=== PATIENT | male | born 1950 | race Caucasian/White ===

== ENCOUNTER 2018-01-29 15:19 | Inpatient (IN) ==
[2018-01-29] MEDS ORDERED: Naloxone 0.4 MG/ML INJ IVP PRN (18:44)
[2018-01-29] MEDS ORDERED: Acetaminophen 325 MG TABLET PO PRN (18:44)
[2018-01-29] MEDS ORDERED: *HR* Heparin 5,000 UNIT/ML VIAL IVP PRN (18:55)
--- NOTE | 2018-01-29 19:10 | Internal Med History&Physical ---
<RenatoDavid Medina - Last Filed: 01/29/18 20:02> Date of Encounter: 01/29/18 Time of Encounter: 18:00 Internal Medicine - H&P: HPI Chief complaint: CP Admitted From: Intrahospital Transfer Plans for Post Hospital Care: Home History of present illness: Mr. Greenfield is a 67 year old male w/PMH of prostate cancer resulting in prostatectomy, CAD, HTN, and CK D/polycystic kidneys, COPD, and angioplasty/ stent x1 in 2014 presents from [place] ED w/CC of CP that began today after eating [employer]. Pt. reports centralized chest pressure and pain w/radiation to left arm and teeth accompanied by nausea, vomiting, dizziness, SOB/dyspnea, and severe diaphoresis. States similar sx before in 2014 requiring heart cath, but not this bad. Reports no alleviating or aggravating factors. EKG at [place] showed evidence for subendocardial ischemia but no evidence for acute ST elevation for acute [place]. Strong familial hx of CAD (father: HD, from [place]; mother: from CVA). Pt. reports recent pneumonia diagnosis in early January with improvement of symptoms except for cough but denies fever, chills, changes in vision, unusual bleeding, headache, palpitations, abdominal pain, diarrhea, constipation, pre-syncope, or syncope. Past Med Surg Social Fam HX - Past Medical History Source: patient, old records reviewed, obtained from family Medical history: cancer (Prostate cancer w/prostatectomy), COPD (Emphysema), coronary artery disease, hypertension, renal disease (Polycystic kidneys) Psychiatric history: no psych history - Past Surgical History Surgical History: angioplasty/stent (x1), prostatectomy, other Additional surgical history: LUNG SURGERY X 1 - Social History Smoking Status: Former smoker Packs per day: 1 PPD - Reports quitting 15 years ago Smokeless Tobacco Status: Yes Alcohol use: none Drug use: none Current living situation: Home Activity Level: Independent ambulation Recent Out of Country Travel Within the Last 8 Weeks: No Exposure or Possible Exposure to Illness During Travel: No - Family History Father Race: Family Member Ethnicity: Non- Living Status: Age at : 62 Cause of : [place] Hx Family Cardiac Disorders: Yes (HD, [place]) Hx Family Cancer: Yes (Lung) Hx Family Psychosocial Disorders: Yes (EtOH abuse) Mother Race: Family Member Ethnicity: Non- Living Status: Age at : 83 Cause of : CVA Hx Family Cardiac Disorders: Yes (CVA) Hx Family Cancer: Yes (Lung) Hx Family Neurologic Disorders: Yes (CVA) Brother Race: Family Member Ethnicity: Non- Living Status: Age at : 50 Cause of : Melanoma Hx Family Cancer: Yes (Melanoma, Hodgkins) Sister Race: Family Member Ethnicity: Non- Living Status: Still Living Hx Family Cancer: Yes (Lung) Internal Medicine - H&P: Meds Carvedilol [Coreg] 6.25 mg PO BIDWM 01/29/18 [History] Cetirizine HCl [Zyrtec] 10 mg PO DAILY 01/29/18 [History] Fluticasone Propionate Nasal [Flonase] 50 mcg NS DAILY 01/29/18 [History] amLODIPine [Norvasc] 5 mg PO DAILY 01/29/18 [History] 3 Allergy/AdvReac Type Severity Reaction Status Date / Time No Known Allergies Allergy Verified 01/29/18 14:27 All Systems PM: A 10-system review of systems was performed and is negative for pertinent findings except as documented above in the HPI. - Constitutional Constitutional: no chills, no fever(s), no night sweats - EENT Eyes: no change in vision, no discharge, no pain, no photophobia Ears: no ear discharge, no ear pain, no tinnitus Nose, mouth and throat: no dysphagia, no nasal discharge, no neck pain, no sore throat - Breasts Breasts: as per HPI - Cardiovascular Cardiovascular ROS IM: as per HPI, chest pain, diaphoresis, dyspnea, dyspnea on exertion, lightheadedness, no palpitations, no syncope - Respiratory Respiratory: as per HPI, cough, dyspnea, dyspnea on exertion, no wheezing, no excessive phlegm production - Gastrointestinal Gastrointestinal: as per HPI, nausea, vomiting, no abdominal pain, no diarrhea, no hematemesis, no hematochezia, no melena - Genitourinary Genitourinary ROS male: as per HPI - Musculoskeletal Musculoskeletal ROS IM: no numbness, no tingling - Integumentary Integumentary IM: no rash, no unusual bruising - Neurological Neurological ROS: as per HPI, dizziness, numbness (Numbness and pain in left arm w/CP sx), no confusion, no convulsions, no focal weakness, no tingling, no tremor(s) - Psychiatric Psychiatric: as per HPI - Endocrine Endocrine IM: as per HPI - Hematologic/Lymphatic Hematologic/Lymphatic: no easy bruising - Allergic/Immunologic Allergic/Immunologic: as per HPI - Constitutional Vitals: Temp Pulse Resp BP Pulse Ox 98.0 F 85 16 162/94 95 01/29/18 16:54 01/29/18 16:54 01/29/18 16:54 01/29/18 16:54 01/29/18 16:54 General appearance: Present: cooperative, mild distress, A&O X 3, pleasant, obese, answers questions appropriately - Head Head exam: Present: atraumatic, normocephalic - Eye Eye exam: Present: PERRL, conjuntiva pink, sclera anicteric Pupils: Present: PERRL - ENT ENT exam: Present: normal exam - Neck Neck exam general surgery: Present: normal inspection, supple, trachea midline. Absent: lymphadenopathy - Respiratory Respiratory exam: Present: CTAB. Absent: accessory muscle use, rales, rhonchi, wheezes - Cardiovascular Cardiovascular exam: Present: RRR, +S1, +S2. Absent: diastolic murmur, gallop, rubs, systolic murmur - GI/Abdominal GI/Abdominal exam: Present: normal bowel sounds, soft, no peritoneal signs. Absent: distended, tenderness - Rectal Rectal exam: Present: deferred Additional comments: exam deferred. - Additional comments: exam deferred. - Extremities Exam Extremities exam: Present: warm, radial pulses palpable and symmetrical. Absent : calf tenderness, cyanotic, pedal edema - Back Exam Back exam: Present: normal inspection - Neurological Exam Neurological exam: Present: alert, CN II-XII intact, oriented X3, no focal deficits. Absent: pronater drift, facial droop, speech deficit - Psychiatric Psychiatric exam: Present: normal affect, normal mood - Skin Skin exam: Present: dry, intact Internal Med - H&P Results - Labs CBC & Chem 7: 01/29/18 19:13 01/29/18 19:13 - Assessment and plan (1) Chest pain Current Visit: Yes Status: Acute Assessment and plan: Acute CP today following eating at [email or web address]. Centralized CP w/radiation to left arm and teeth. EKG at [place] ED shows evidence for subendocardial ischemia but no evidence for acute ST elevation for acute [place]. Hx of heart catheterization in 2015 w/stent x1. Pt reports sx similar to 2015 but now worse. Initial troponin <0.03. Second 0.97. Will continue to trend. Repeat EKG. Continuous cardiac telemetry. Echocardiogram. Aspirin. 80 mg PO Lipitor ONCE. Lipid panel in a.m. labs. Cardiology consult ordered and discussed w/Dr. Devlin and I appreciate the consult and recommendations as always. Dr. Devlin' s recommendations include heparin and nitro drips. Pt. discussed w/Dr. Enrique who agrees w/plan of care. Pt. is high risk for cardiac event and further morbidity d/t current sx and CP, abnormal EKG, hx of similar sx and heart cath in 2015, strong familial hx of CAD/[place]/CVA, hx of tobacco use, and risk factors. Inpatient. Qualifiers: Chest pain type: precordial pain Qualified Code(s): R07.2 - Precordial pain (2) SOB (shortness of breath) Current Visit: Yes Status: Acute Assessment and plan: Acute SOB/dypsnea accompanying CP sx. Supplemental O2 w/titration and SpO2 monitoring. Hx of emphysema. DuoNebs Q6HR PRN. Falls/safety precautions, up with assist, bed rest w/bathroom privileges w/assist only. (3) Nausea and vomiting Current Visit: Yes Status: Acute Assessment and plan: Acute nausea and vomiting accompanying CP. IVP Zofran 4 mg Q6HR PRN. Qualifiers: Vomiting type: cyclical vomiting Vomiting Intractability: non-intractable Qualified Code(s): G43.A0 - Cyclical vomiting, not intractable (4) CAD (coronary artery disease) Current Visit: Yes Status: Chronic Assessment and plan: Hx of chronic CAD. Heart catheterization in 2014 w/stent x1. Continuous cardiac telemetry. Echocardiogram. Continue pts. Norvasc and Carvedilol. Lipid panel in a.m. labs. Lipitor 80 mg PO NOW. Qualifiers: Coronary Disease-Associated Artery/Lesion type: [place] artery [place] vs. transplanted heart: [place] heart Associated angina: angina presence unspecified Qualified Code(s): I25.10 - Atherosclerotic heart disease of [place] coronary artery without angina pectoris (5) Emphysema of lung Current Visit: Yes Status: Chronic Assessment and plan: Hx of chronic emphysema. Stable. Pt. reports hx of smoking 1 PPD but quitting 15 years ago. Supplemental O2 w/titration and SpO2 monitoring. DuoNebs Q6HR PRN. Qualifiers: Emphysema type: unspecified Qualified Code(s): J43.9 - Emphysema, unspecified (6) HTN (hypertension) Current Visit: Yes Status: Chronic Assessment and plan: Hx of chronic HTN. Monitor pt. and VS. Continue Carvedilol and Norvasc. Qualifiers: Hypertension type: essential hypertension Qualified Code(s): I10 - Essential (primary) hypertension (7) Renal failure (ARF), acute on chronic Current Visit: Yes Status: Chronic Assessment and plan: ARF. GFR currently 20 and creatinine 3.20 on admission. Hx of polycystic kidneys. Pts. daughter reports previous GFR was 30. Will use IV fluids judiciously if warranted and avoid nephrotoxins. Monitor I&O and f/u labs. Qualifiers: Acute renal failure type: unspecified Chronic kidney disease stage: unspecified stage Qualified Code(s): N17.9 - Acute kidney failure, unspecified ; N18.9 - Chronic kidney disease, unspecified (8) DVT prophylaxis Current Visit: Yes Status: Acute Assessment and plan: Patient placed on heparin drip per Cardiology d/t CP sx. Monitor pt. for signs of bleeding. - Time Spent With Patient Total time spent is greater than 50% in coordination of care (as documented) at patient's floor/unit and/or counseling patient: Greater than 35 minutes <Brittny Enrique - Last Filed: 01/29/18 21:58> Date of Encounter: 01/29/18 Internal Medicine - H&P: HPI Admitted From: Emergency Dept Plans for Post Hospital Care: Home History of present illness: Mr. Greenfield is a 67 year old male All Systems PM: A 10-system review of systems was performed and is negative for pertinent findings except as documented above in the HPI. - Constitutional Vitals: Temp Pulse Resp BP Pulse Ox 98 F 66 18 158/109 97 01/29/18 20:26 01/29/18 20:26 01/29/18 20:26 01/29/18 20:26 01/29/18 20:26 General appearance: Present: A&O X 3, no acute distress ( ) - Head Head exam: Present: atraumatic, normocephalic - Eye Eye exam: Present: PERRL, conjuntiva pink, sclera anicteric Pupils: Present: PERRL - Neck Neck exam general surgery: Present: supple, trachea midline. Absent: lymphadenopathy - Respiratory Respiratory exam: Present: CTAB. Absent: accessory muscle use, rales, rhonchi, wheezes - Cardiovascular Cardiovascular exam: Present: RRR, +S1, +S2. Absent: diastolic murmur, gallop, rubs, systolic murmur - GI/Abdominal GI/Abdominal exam: Present: normal bowel sounds, soft, no peritoneal signs. Absent: distended, tenderness - Extremities Exam Extremities exam: Present: warm, radial pulses palpable and symmetrical. Absent : calf tenderness, cyanotic, pedal edema - Neurological Exam Neurological exam: Present: CN II-XII intact, oriented X3, no focal deficits. Absent: pronater drift, facial droop, speech deficit - Skin Skin exam: Present: dry, intact Internal Med - H&P Results - Labs CBC & Chem 7: 01/29/18 19:13 01/29/18 19:13 Labs: Short CBC 01/29/18 Range/Units 19:13 WBC 6.1 (4.3-11.1) K/mcL Hgb 13.9 (12.9-16.9) g/dL Hct 41.9 (37.5-50.1) % Plt Count 202 (140-400) K/mcL Neutrophils # 4.3 (1.6-8.9) K/mcL BMP 01/29/18 19:13 Sodium 138 Potassium 4.6 Chloride 109 H Carbon Dioxide 24 BUN 31 H Creatinine 2.94 H Glucose 131 H Calcium 8.8 Cardiac Enzymes 01/29/18 Range/Units 19:13 Troponin I 0.97 H* (< 0.04) ng/mL Liver Function 01/29/18 Range/Units 19:13 Total Bilirubin 0.4 (0.3-1.0) mg/dL AST 20 (13-39) Units/L ALT 12 (7-52) Units/L Alkaline Phosphatase 45 (34-104) Units/L Albumin 3.8 (3.5-5.7) g/dL - Attending Attestation I performed a history and physical exam of the patient and discussed his management with the GRE TUTOR. I reviewed the GRE TUTOR's note and agree with the documented findings and plan of care. - Time Spent With Patient Total time spent is greater than 50% in coordination of care (as documented) at patient's floor/unit and/or counseling patient: 25 - 35 minutes
[2018-01-29] MEDS ORDERED: Ondansetron 4 MG/2 ML VIAL IVP PRN (19:39)
[2018-01-29] MEDS ORDERED: Ipratropium/Albuterol Neb 3 ML IH PRN (19:39)
[2018-01-29 19:42] LABS: Basophils % 0.5 %; Eosinophils # 0.1 K/mcL (0.0-0.6); Eosinophils % 1.3 %; Hematocrit 41.9 % (37.5-50.1); Hemoglobin 13.9 g/dL (12.9-16.9); Immature Granulocytes % 0.5 % (0-4); Lymphocytes # 1.1 K/mcL (0.6-4.6); Lymphocytes % 18.8 %; Mean Corpuscular HGB Conc 33.2 g/dL (31.6-35.5); Mean Corpuscular Hemoglobin 28.7 pg (28.0-33.3); Mean Corpuscular Volume 86.6 fL (83.0-100.0); Mean Platelet Volume 10.4 fL (9.4-12.4); Monocytes # 0.5 K/mcL (0.0-1.3); Monocytes % 7.8 %; Neutrophils # 4.3 K/mcL (1.6-8.9); Platelet Count 202 K/mcL (140-400); Red Blood Count 4.84 M/mcL (4.19-5.50); Red Cell Distribution Width 13.6 % (11.5-14.5); Segmented Neutrophils % 71.1 %
[2018-01-29 19:44] LABS: Albumin 3.8 g/dL (3.5-5.7); Albumin/Globulin Ratio 1.2 (1.1-2.2); Bilirubin,Total 0.4 mg/dL (0.3-1.0); Calcium 8.8 mg/dL (8.6-10.3); Globulin 3.1 g/dL (2.4-3.5); Potassium 4.6 mEq/L (3.5-5.1); Total Protein 6.9 g/dL (6.4-8.9)
[2018-01-29 19:50] LABS: Prothrombin Time 11.2 Seconds (9.4-12.1)
[2018-01-29] MEDS: Heparin 25,000 UNIT/500 ML D5W 25,000 UNIT/500 ML BAG IVC SCH (20:02)
[2018-01-29] MEDS: Aspirin Enteric Coated 81 MG Tablet PO SCH (20:05)
[2018-01-29] MEDS: Nitroglycerin 25 MG/250 ML INFUS..BTL IVC SCH (20:07)
[2018-01-30 02:01] LABS: Basophils % 0.5 %; Eosinophils # 0.2 K/mcL (0.0-0.6); Eosinophils % 2.7 %; Hematocrit 39.7 % (37.5-50.1); Hemoglobin 13.2 g/dL (12.9-16.9); Immature Granulocytes % 0.2 % (0-4); Lymphocytes # 1.7 K/mcL (0.6-4.6); Lymphocytes % 26.9 %; Mean Corpuscular HGB Conc 33.2 g/dL (31.6-35.5); Mean Corpuscular Hemoglobin 28.6 pg (28.0-33.3); Mean Corpuscular Volume 86.1 fL (83.0-100.0); Mean Platelet Volume 10.2 fL (9.4-12.4); Monocytes # 0.7 K/mcL (0.0-1.3); Neutrophils # 3.7 K/mcL (1.6-8.9); Platelet Count 187 K/mcL (140-400); Red Blood Count 4.61 M/mcL (4.19-5.50); Red Cell Distribution Width 13.8 % (11.5-14.5); Segmented Neutrophils % 58.7 %
[2018-01-30 02:21] LABS: Albumin 3.4 g/dL (3.5-5.7); Albumin/Globulin Ratio 1.2 (1.1-2.2); Bilirubin,Total 0.3 mg/dL (0.3-1.0); Calcium 8.5 mg/dL (8.6-10.3); Chol/HDL Ratio 3.9 (0-4.9); Globulin 2.8 g/dL (2.4-3.5); Magnesium 2.2 mg/dL (1.6-2.6); Potassium 4.1 mEq/L (3.5-5.1); Total Protein 6.2 g/dL (6.4-8.9)
[2018-01-30] MEDS: *HR* Heparin 5,000 UNIT/ML VIAL IVP PRN (02:27)
[2018-01-30] MEDS: Aspirin Enteric Coated 81 MG Tablet PO SCH (08:39)
--- NOTE | 2018-01-30 09:58 | Cardiology Consult Note ---
Date of Encounter: 01/30/18 Time of Encounter: 08:00 Assessment and Plan (1) NSTEMI (non-ST elevated myocardial infarction) Current Visit: Yes Status: Acute Typical chest pain symptoms, ischemic ECG changes. Troponin 0.97, 5.32. Continue to cycle until peak. Known hx of CAD s/p PCI with preserved LVEF in 2014. Continue heparin gtt, nitro gtt, and asa. Will start statin and BB. Will give Plavix 300 mg now, and then 75 mg daily. Ideally recommend LHC with possible PCI; however presented in [place] on CKD with SCr 3.20. Currently chest pain free, will start IV fluid and consult Nephrology. Plan for LHC in AM if able. Cardiac rehab consult. Risk factor reduction discussed. Check echocardiogram. Will continue to follow. (2) Renal insufficiency Current Visit: Yes Status: Acute SUZIE on CKD. Reported history of polycystic kidney disease. Baseline SCr appears to be 1.8-2.0; SCr 3.20 upon admission, now 2.94. Will start gentle IV hydration. Avoid nephrotoxins . Consulted Nephrology (Dr. Whitten, [facility]) for recommendations prior to LHC, if able. (3) CAD (coronary artery disease) Current Visit: Yes Status: Chronic plan as above. Asa, statin, BB, nitrates and plavix. Qualifiers: Coronary Disease-Associated Artery/Lesion type: [place] artery [place] vs. transplanted heart: [place] heart Associated angina: with unstable angina Qualified Code(s): I25.110 - Atherosclerotic heart disease of [place] coronary artery with unstable angina pectoris Discussion w patient/family: The assessment and plan as outlined above was discussed with the patient and/or family members who expressed understanding and agreement. All questions were answered. Thank you for involving us in the care of your patient. Please call with any questions. The patient will be discussed and reviewed with Dr. Devlin; changes to be made accordingly. History of Present Illness Consult date: 01/30/18 Requesting physician: David Gross Consult reason: NSTEMI Chief complaint: Chest pain History of present illness: Mr. Greenfield is a 67 year old male with PMHx significant of prostate CA s/p prostatectomy, CAD s/p prior PCI, HTN, nicotine use, & CKD d/t polycystic kidney disease who presented to [place] ED with complaints of chest discomfort that started ~1 hour prior to arrival. He notes pain developed after eating at [email or web address]. Chest discomfort described as tightness and pressure with radiation to left arm, reports similar symptoms in the past however much more severe. Reports pain lasted nearly an hour; improved with medications given in the ED including asa x4 and NTG tabs. Initial troponin 0.97, ischemic ECG changes noted , he was then transferred to [facility] for further care. SCr 3.20 upon arrival, 2.94 today. Reports hx of CKD; Nephrology reportedly left town and few years ago and never re-established. Prior CV testing: TTE 08/2014: EF 60-65% mild-moderate cLVH, mild LVDD, normal wall motion, no significant valvular dysfunction [facility] 08/2014: s/p successful PTCA/BIENVENIDO to pOM; otherwise 20% LAD, 30% mRCA and 99% pRCA (described as small, non-dominant vessel). Past Med Surg Social Fam HX - Past Medical History Source: patient Medical history: cancer (Prostate cancer w/prostatectomy), COPD (Emphysema), coronary artery disease, hypertension, renal disease (Polycystic kidneys) Psychiatric history: no psych history - Past Surgical History Surgical History: angioplasty/stent (x1), prostatectomy, other Additional surgical history: LUNG SURGERY X 1 - Social History Smoking Status: Former smoker Packs per day: 1 PPD - Reports quitting 15 years ago Smokeless Tobacco Status: Yes Alcohol use: none Drug use: none - Family History Father Race: Family Member Ethnicity: Non- Living Status: Age at : 62 Cause of : [place] Hx Family Cardiac Disorders: Yes (HD, [place]) Hx Family Cancer: Yes (Lung) Hx Family Psychosocial Disorders: Yes (EtOH abuse) Mother Race: Family Member Ethnicity: Non- Living Status: Age at : 83 Cause of : CVA Hx Family Cardiac Disorders: Yes (CVA) Hx Family Cancer: Yes (Lung) Hx Family Neurologic Disorders: Yes (CVA) Brother Race: Family Member Ethnicity: Non- Living Status: Age at : 50 Cause of : Melanoma Hx Family Cancer: Yes (Melanoma, Hodgkins) Sister Race: Family Member Ethnicity: Non- Living Status: Still Living Hx Family Cancer: Yes (Lung) Medications and Allergies Carvedilol [Coreg] 6.25 mg PO BIDWM 01/29/18 [History] Cetirizine HCl [Zyrtec] 10 mg PO DAILY 01/29/18 [History] Fluticasone Propionate Nasal [Flonase] 50 mcg NS DAILY 01/29/18 [History] amLODIPine [Norvasc] 5 mg PO DAILY 01/29/18 [History] 3 Allergy/AdvReac Type Severity Reaction Status Date / Time No Known Allergies Allergy Verified 01/29/18 14:27 All Systems Review: The remainder of the systems were reviewed and are negative - Cardiovascular Cardiovascular: as per HPI Physical Examination Vital Signs, Last 4 Hours Temp Pulse Resp BP Pulse Ox 01/30/18 08:48 64 153/87 97 01/30/18 07:08 98.2 F 56 16 139/120 93 01/30/18 07:05 65 163/99 94 01/30/18 06:00 63 163/103 General: Conversant, No Apparent Distress HEENT: Atraumatic, Normocephaly Cardiac: Reg Rate and Rhythm, Normal S1 and S2 Lungs: Normal Breath Sounds Neuro: Alert and responsive Abdomen: Soft Skin: No rashes noted on visualized skin Musculoskeletal: No Chest Wall Tenderness Extremities: No Edema, Normal Pulses Results 01/30/18 01:40 01/30/18 01:40 Lab Results 01/29/18 01/29/18 01/29/18 19:13 19:13 19:13 WBC 6.1 Hgb 13.9 Hct 41.9 Plt Count 202 INR 1.0 APTT 34.0 Sodium 138 Potassium 4.6 Chloride 109 H Carbon Dioxide 24 BUN 31 H Creatinine 2.94 H Glucose 131 H Calcium 8.8 Magnesium Total Bilirubin 0.4 AST 20 ALT 12 Alkaline Phosphatase 45 Troponin I 01/29/18 01/30/18 01/30/18 19:13 01:40 01:40 WBC 6.3 Hgb 13.2 Hct 39.7 Plt Count 187 INR APTT Sodium Potassium Chloride Carbon Dioxide BUN Creatinine Glucose Calcium Magnesium Total Bilirubin AST ALT Alkaline Phosphatase Troponin I 0.97 H* 5.32 H* 01/30/18 01/30/18 01/30/18 01:40 01:40 08:31 WBC Hgb Hct Plt Count INR APTT 53.0 H D 97.6 H D Sodium 138 Potassium 4.1 Chloride 109 H Carbon Dioxide 22 L BUN 29 H Creatinine 2.94 H Glucose 126 H Calcium 8.5 L Magnesium 2.2 Total Bilirubin 0.3 AST 35 ALT 13 Alkaline Phosphatase 40 Troponin I Active Medications Acetaminophen (Tylenol) 650 mg PO Q6HR PRN PRN Reason: Mild Pain/Fever Stop: 07/31/18 18:45 Albuterol/Ipratropium (Duoneb) 3 ml IH [id number] PRN PRN Reason: Shortness Of Breath/Wheezing Stop: 07/31/18 19:40 Aspirin (Aspirin Ec) 81 mg PO DAILY KLARISSA Stop: 07/31/18 19:01 Last Admin: 01/30/18 08:39 Dose: 81 mg Atorvastatin Calcium (Lipitor) 40 mg PO HS KLARISSA Stop: 08/01/18 21:01 Clopidogrel Bisulfate (Plavix) 75 mg PO DAILY KLARISSA Stop: 08/02/18 09:01 Guaifenesin (Mucinex) 600 mg PO BID PRN PRN Reason: Cough Stop: 07/31/18 19:11 Heparin Sodium (Porcine) (Heparin) 4,000 unit IVP Q6HR PRN PRN Reason: SEE COMMENTS Stop: 07/31/18 18:56 Heparin Sodium (Porcine) (Heparin) 2,000 unit IVP Q6H PRN PRN Reason: SEE COMMENTS Stop: 07/31/18 18:56 Last Admin: 01/30/18 02:27 Dose: 2,000 unit Heparin Sodium/Dextrose (Heparin 25,000 Unit/500 Ml D5w) 25,000 unit in 500 mls @ 19.799 mls/hr IVC .Q24H KLARISSA; 9.7 UNIT/KG/HR PRN Reason: Protocol Stop: 07/31/18 19:01 Last Titration: 01/30/18 09:17 Dose: 9.74 unit/kg/hr, 19.9 mls/hr Nitroglycerin (Nitroglycerin Premix 25 Mg/250 Ml) 25 mg in 250 mls @ 3 mls/hr IVC .Q24H KLARISSA; 5 MCG/MIN PRN Reason: Protocol Stop: 07/31/18 19:01 Last Admin: 01/29/18 20:07 Dose: 5 mcg/min, 3 mls/hr Metoprolol Tartrate (Lopressor) 12.5 mg PO BID KLARISSA Stop: 08/01/18 21:01 Naloxone HCl (Narcan) 0.4 mg IVP Q2MIN PRN PRN Reason: SEE COMMENTS Stop: 07/31/18 18:45 Nicotine Polacrilex (Nicorette Gum) 2 mg BC Q2HWA PRN PRN Reason: Nicotine Cravings Stop: 07/31/18 19:17 Ondansetron HCl (Zofran) 4 mg IVP Q6HR PRN; Protocol PRN Reason: Nausea And Vomiting Stop: 07/31/18 19:40 - Imaging and Cardiology Echo: report reviewed Cardiac cath: report reviewed Other Results: 12 hour tele: avg HR=62 SR; no events noted. - EKG Interpretation EKG results cardiology: personally reviewed Consult Discharge Plan - Plan Referrals: Razia Huynh, TELECOMMUNICATIONS TECHNICIAN [Primary Care Provider] - NONE,PCP [Family Provider] -
[2018-01-30] MEDS ORDERED: 0.9 % Sodium Chloride 1,000 ML IVC SCH (10:15)
--- NOTE | 2018-01-30 11:33 | Nephrology Consult Note ---
Date of Encounter: 01/30/18 Time of Encounter: 11:33 Assessment and Plan (1) Acute kidney injury superimposed on chronic kidney disease Current Visit: Yes Status: Acute Patient with SUZIE on CKD Stage 3 that is likely secondary to cardiac dysfunction and possibly dehydration. His renal function is improved slightly. Will order renal ultrasound and basic SUZIE work-up. Continue MIV. Will start Mucomyst for protection from anticipated iodonated contrast from cardiac cath for his NSTEMI. I explained that he may need dialysis if his renal function declines from contrast. Adjust medications for renal function and avoid nephrotoxins as possible. (2) CKD (chronic kidney disease), stage III Current Visit: Yes Status: Acute CKD Stage 3 since at least 2014. (3) NSTEMI (non-ST elevated myocardial infarction) Current Visit: Yes Status: Acute Per cardiology. History of Present Illness - Reason for Consult Consult date: 01/30/18 Acute Kidney Injury, Chronic Kidney Disease - Chief Complaint CKD - History of Present Illness Mr. Greenfield is a 67 yo man with a history of polycystic kidney disease who presents to [facility] for the evaluation of chest discomfort and was found to have a NSTEMI. He has a history of CKD Stage [address] Valdez, but he reports he has not been seen in over 3 years and wishes to establish with another retrofit installer. At the time of my evaluation he denies chest pain or shortness of breath. He denies rashes, joint pains, nausea or other complaints. He denies NSAID use. He states he was told he has polycystic kidneys. Past Med Surg Social Fam HX - Past Medical History Medical history: cancer (Prostate cancer w/prostatectomy), COPD (Emphysema), coronary artery disease, hypertension, renal disease (Polycystic kidneys) Psychiatric history: no psych history - Past Surgical History Surgical History: angioplasty/stent (x1), prostatectomy, other Additional surgical history: LUNG SURGERY X 1 - Social History Smoking Status: Former smoker Packs per day: 1 PPD - Reports quitting 15 years ago Smokeless Tobacco Status: Yes Alcohol use: none Drug use: none - Family History Father Race: Family Member Ethnicity: Non- Living Status: Age at : 62 Cause of : MS Hx Family Cardiac Disorders: Yes (HD, MS) Hx Family Cancer: Yes (Lung) Hx Family Psychosocial Disorders: Yes (EtOH abuse) Mother Race: Family Member Ethnicity: Non- Living Status: Age at : 83 Cause of : CVA Hx Family Cardiac Disorders: Yes (CVA) Hx Family Cancer: Yes (Lung) Hx Family Neurologic Disorders: Yes (CVA) Brother Race: Family Member Ethnicity: Non- Living Status: Age at : 50 Cause of : Melanoma Hx Family Cancer: Yes (Melanoma, Hodgkins) Sister Race: Family Member Ethnicity: Non- Living Status: Still Living Hx Family Cancer: Yes (Lung) Medications and Allergies Carvedilol [Coreg] 6.25 mg PO BIDWM 01/29/18 [History] Cetirizine HCl [Zyrtec] 10 mg PO DAILY 01/29/18 [History] Fluticasone Propionate Nasal [Flonase] 50 mcg NS DAILY 01/29/18 [History] amLODIPine [Norvasc] 5 mg PO DAILY 01/29/18 [History] 3 Allergy/AdvReac Type Severity Reaction Status Date / Time No Known Allergies Allergy Verified 01/30/18 10:56 Review of Systems All Systems: reviewed and no additional remarkable complaints except as stated ( as documented in the HPI.) Exam - Vital Signs Vital signs: Initial Vital Signs Pulse BP 53 137/77 01/29/18 00:00 01/29/18 00:00 Vital Signs - Last 8 Hours Temp Pulse Resp BP Pulse Ox 01/30/18 08:48 64 153/87 97 01/30/18 07:08 98.2 F 56 16 139/120 93 01/30/18 07:05 65 163/99 94 01/30/18 06:00 63 163/103 01/30/18 04:01 98.2 F 63 16 146/82 92 Intake and Output 01/29/18 01/30/18 01/30/18 23:59 07:59 15:59 Intake Total 128 / 128 352 / 352 Output Total 1225 / 1225 Balance -1097 / -1097 352 / 352 Intake: IV Fluids 128 / 128 352 / 352 Heparin 25,000 UNIT/500 ML D5W 128 / 128 352 / 352 25,000 unit In 500 ml @ 9.7 UNIT/KG/HR 19.799 mls/hr IVC . Q24H [facility] Rx#:[id number] Output: Urine 1225 / 1225 Other: Weight 102.058 kg 102.7 kg Patient Weight 01/30/18 23:59 Weight 102.7 kg - General Appearance General appearance: well-developed, well-nourished, obese EENT: ATNC Neck: supple Respiratory: clear Cardiology: no edema, regular rate, regular rhythm Gastrointestinal: normoactive bowel sounds, no tenderness, obese Integumentary: warm and dry Neurologic: alert and oriented x3 Musculoskeletal: no cyanosis Psychiatric: mood/affect appropriate Results - Lab Results 01/30/18 01:40 01/30/18 01:40 Most recent lab results Calcium 8.5 mg/dL (8.6-10.3) L 01/30/18 01:40 Magnesium 2.2 mg/dL (1.6-2.6) 01/30/18 01:40 Consult Discharge Plan - Plan Referrals: Razia Huynh, RENATA [Primary Care Provider] - NONE,PCP [Family Provider] -
[2018-01-30] MEDS: *HR* Acetylcysteine 20% 600 MG/3 ML ORAL SYRINGE PO SCH ×2 (13:22→21:22)
[2018-01-30 13:25] LABS: Bilirubin,Urine Negative (Negative); Blood,Urine Small (Negative); Clarity,Urine Clear (Clear); Color,Urine Yellow (Yellow); Glucose,Urine (UA) 100 mg/dL (Normal); Ketones,Urine Negative (Negative); Leukocyte Esterase,Urine Negative (Negative); Nitrite,Urine Negative (Negative); Protein,Urine 100 mg/dL (Neg-Trace); Specific Gravity,Urine 1.012 (1.010-1.025); Urobilinogen,Urine Normal (Normal)
[2018-01-30 13:27] LABS: Bacteria,Urine None Seen per hpf (None-Few); Hyaline Casts,Urine None Seen per lpf (None-Few); Squamous Epithelial Cell,Urine None Seen per lpf (None-Few); WBC,Urine 0-3 per hpf (0-3)
--- NOTE | 2018-01-30 13:59 | Internal Med Progress Note ---
Date of Encounter: 01/30/18 Time of Encounter: 13:54 - Assessment and plan (1) Chest pain Current Visit: Yes Status: Inactive Assessment and plan: No chest pain at this time. History of CAD status post stent 1 in 2014. Trending up troponin level but also has elevated creatinine level. Therefore consulted barrel drum cutter who ordered a renal ultrasound and a started Mucomyst and discussed with patient for possible hemodialysis if kidney function get worse after the heart catheter procedure. Plan for heart catheter tomorrow as patient is chest pain-free right now but consider heart catheter today if chest pain recur. Continue medical management now. Echocardiogram revealed with preserved LV function. Qualifiers: Chest pain type: precordial pain Qualified Code(s): R07.2 - Precordial pain (2) HTN (hypertension) Current Visit: Yes Status: Inactive Assessment and plan: Hx of chronic HTN. Monitor pt. and VS. Continue Carvedilol and Norvasc. Qualifiers: Hypertension type: essential hypertension Qualified Code(s): I10 - Essential (primary) hypertension (3) Renal failure (ARF), acute on chronic Current Visit: Yes Status: Inactive Assessment and plan: Table Maker on board. Monitor BMP. ARF. GFR currently 20 and creatinine 3.20 on admission. Hx of polycystic kidneys. Pts. daughter reports previous GFR was 30. Will use IV fluids judiciously if warranted and avoid nephrotoxins. Monitor I&O and f/u labs. Qualifiers: Acute renal failure type: unspecified Chronic kidney disease stage: unspecified stage Qualified Code(s): N17.9 - Acute kidney failure, unspecified ; N18.9 - Chronic kidney disease, unspecified (4) CAD (coronary artery disease) Current Visit: Yes Status: Chronic Assessment and plan: Hx of chronic CAD. Heart catheterization in 2014 w/stent x1. Continuous cardiac telemetry. Lipid panel in a.m. labs. Lipitor 80 mg PO NOW. Qualifiers: Coronary Disease-Associated Artery/Lesion type: [place] artery [place] vs. transplanted heart: [place] heart Associated angina: with unstable angina Qualified Code(s): I25.110 - Atherosclerotic heart disease of [place] coronary artery with unstable angina pectoris (5) Emphysema of lung Current Visit: Yes Status: Chronic Assessment and plan: Hx of chronic emphysema. Stable. Pt. reports hx of smoking 1 PPD but quitting 15 years ago. Supplemental O2 w/titration and SpO2 monitoring. Mildredbs Q6HR PRN. Qualifiers: Emphysema type: unspecified Qualified Code(s): J43.9 - Emphysema, unspecified (6) Nausea and vomiting Current Visit: Yes Status: Acute Assessment and plan: Better. continue IVP Zofran 4 mg Q6HR PRN. Qualifiers: Vomiting type: cyclical vomiting Vomiting Intractability: non-intractable Qualified Code(s): G43.A0 - Cyclical vomiting, not intractable (7) SOB (shortness of breath) Current Visit: Yes Status: Acute Assessment and plan: better Acute SOB/dypsnea accompanying CP sx. Supplemental O2 w/titration and SpO2 monitoring. Hx of emphysema. DuoNebs Q6HR PRN. (8) DVT prophylaxis Current Visit: Yes Status: Acute Assessment and plan: Patient placed on heparin drip per Cardiology d/t CP sx. Monitor pt. for signs of bleeding. - Time Spent With Patient Total time spent is greater than 50% in coordination of care (as documented) at patient's floor/unit and/or counseling patient: 25 - 35 minutes - Subjective Interval history: no active chest pain now.family at bed side. - Constitutional Vitals: Temp Pulse Resp BP Pulse Ox 98.7 F 67 18 172/91 94 01/30/18 11:33 01/30/18 13:43 01/30/18 11:33 01/30/18 13:43 01/30/18 13:00 General appearance: Present: A&O X 3, no acute distress ( ) Exam: General appearance: No acute distress, A&O X 3 Head exam: Atraumatic Eye exam: EOMI, PERRLA ENT exam: Moist oral mucosa Neck nontender, supple Respiratory exam: Clear to auscultation bilaterally Cardiovascular exam: Regular rate and rhythm, no systolic murmur Abdominal exam: Soft, nontender, nondistended, positive bowel sounds Extremities exam: No calf tenderness, no pedal edema Present: Skin-no rash, warm, dry, intact Neurological exam: Alert, awake, oriented 3, CN II-XII intact, no focal deficits. No facial droop. Normal speech. Normal gait. Internal Medicine: Result - Labs CBC & Chem 7: 01/30/18 01:40 01/30/18 01:40 Labs: Short CBC 01/29/18 01/30/18 Range/Units 19:13 01:40 WBC 6.1 6.3 (4.3-11.1) K/mcL Hgb 13.9 13.2 (12.9-16.9) g/dL Hct 41.9 39.7 (37.5-50.1) % Plt Count 202 187 (140-400) K/mcL Neutrophils # 4.3 3.7 (1.6-8.9) K/mcL BMP 01/29/18 01/30/18 19:13 01:40 Sodium 138 138 Potassium 4.6 4.1 Chloride 109 H 109 H Carbon Dioxide 24 22 L BUN 31 H 29 H Creatinine 2.94 H 2.94 H Glucose 131 H 126 H Calcium 8.8 8.5 L Cardiac Enzymes 01/29/18 01/30/18 01/30/18 Range/Units 19:13 01:40 09:44 Troponin I 0.97 H* 5.32 H* 8.52 H* (< 0.04) ng/mL Liver Function 01/29/18 01/30/18 Range/Units 19:13 01:40 Total Bilirubin 0.4 0.3 (0.3-1.0) mg/dL AST 20 35 (13-39) Units/L ALT 12 13 (7-52) Units/L Alkaline Phosphatase 45 40 (34-104) Units/L Albumin 3.8 3.4 L (3.5-5.7) g/dL Urine 01/30/18 Range/Units 12:50 Urine Color Yellow (Yellow) Urine Clarity Clear (Clear) Urine pH 7.0 (5.0-8.0) pH Units Ur Specific Mcclure 1.012 (1.010-1.025) Urine Protein 100 H (Neg-Trace) mg/dL Urine Glucose (UA) 100 H (Normal) mg/dL - ABG Interpretation ABG results: PT/INR, D-dimer PT 11.2 Seconds (9.4-12.1) 01/29/18 19:13 - Impressions Impressions Echocardiogram 01/30/18 19:01 Impressions: LVEF 60%. Normal LV chamber size and function. Moderate concentric left ventricular hypertrophy. Moderate left ventricular diastolic dysfunction. Normal right ventricular structure and function. Unable to estimate RVSP due to lack of TR jet. No evidence of pulmonary hypertension. No significant valvular dysfunction. Left Ventricular Wall Motion: Rest Echo Findings All wall segments showed normal motion. Findings: Study Quality * Technically adequate exam. ECG Findings * Normal sinus rhythm. Left Ventricle * LVEF 60%. * Normal LV chamber size and function. * Moderate concentric left ventricular hypertrophy. * Moderate left ventricular diastolic dysfunction. Right Ventricle * Normal right ventricular structure and function. Left Atrium * Mildly dilated left atrium. Right Atrium * Mildly dilated right atrium. Aortic Valve * Trileaflet aortic valve. * Mildly sclerotic aortic valve leaflets. * Trace aortic regurgitation. * No aortic stenosis. Mitral Valve * Normal mitral valve structure and function. * No mitral stenosis. * Trace mitral regurgitation. Tricuspid Valve * Normal tricuspid valve structure and function. * No tricuspid regurgitation. * Unable to estimate RVSP due to lack of TR jet. Pulmonic Valve * Normal pulmonic valve structure and function. * Trace pulmonic regurgitation. Aorta * Normally sized aortic root. Pericardium * The pericardium appears normal. IVC * Normal IVC dimensions and inspiratory collapse. Pulmonary Artery * Normal visualized portions of the main pulmonary artery. Consult Discharge Plan - Plan Referrals: Razia Huynh, RENATA [Primary Care Provider] - NONE,PCP [Family Provider] -
[2018-01-30 15:19] LABS: Protein/Creatinine Ratio,Urine 1.53 mg/mg (0.00-0.20); Sodium, Urine 85.5 mEq/L
[2018-01-30] MEDS: Heparin 25,000 UNIT/500 ML D5W 25,000 UNIT/500 ML BAG IVC SCH (17:41)
[2018-01-30] MEDS: amLODIPine 5 MG TABLET PO SCH (22:34)
[2018-01-31 00:38] LABS: Basophils % 0.5 %; Eosinophils # 0.3 K/mcL (0.0-0.6); Eosinophils % 4.5 %; Hemoglobin 12.5 g/dL (12.9-16.9); Immature Granulocytes % 0.5 % (0-4); Immature Platelets 2.5 % (1.1-6.1); Lymphocytes # 1.4 K/mcL (0.6-4.6); Mean Corpuscular HGB Conc 32.9 g/dL (31.6-35.5); Mean Corpuscular Hemoglobin 28.6 pg (28.0-33.3); Mean Platelet Volume 10.2 fL (9.4-12.4); Monocytes # 0.8 K/mcL (0.0-1.3); Monocytes % 10.9 %; Neutrophils # 4.7 K/mcL (1.6-8.9); Platelet Count 186 K/mcL (140-400); Red Blood Count 4.37 M/mcL (4.19-5.50); Red Cell Distribution Width 13.8 % (11.5-14.5); Segmented Neutrophils % 64.6 %
[2018-01-31 00:48] LABS: Albumin 3.4 g/dL (3.5-5.7); Albumin/Globulin Ratio 1.3 (1.1-2.2); Bilirubin,Total 0.5 mg/dL (0.3-1.0); Calcium 8.4 mg/dL (8.6-10.3); Globulin 2.7 g/dL (2.4-3.5); Potassium 4.4 mEq/L (3.5-5.1); Total Protein 6.1 g/dL (6.4-8.9)
[2018-01-31] MEDS: Nitroglycerin 25 MG/250 ML INFUS..BTL IVC SCH (01:44)
[2018-01-31] MEDS: *HR* Heparin 5,000 UNIT/ML VIAL IVP PRN (01:44)
[2018-01-31] MEDS: Aspirin Enteric Coated 81 MG Tablet PO SCH (09:17)
[2018-01-31] MEDS: amLODIPine 5 MG TABLET PO SCH (09:18)
--- NOTE | 2018-01-31 10:21 | Nephrology Progress Note ---
Date of Encounter: 01/31/18 Time of Encounter: 10:19 - Assessment and Plan (1) Acute kidney injury superimposed on chronic kidney disease Current Visit: Yes Status: Acute Awaiting renal ultrasound. Urine NA, protein, microalbumin noted. UOP 930 today, 1620 yesterday. No signs of fluid overload/uremia. Will continue to attempt to preserve kidney function for heart cath. Encouraged to force fluids by mouth after heart cath. 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 Okay for heart cath from renal standpoint. (2) NSTEMI (non-ST elevated myocardial infarction) Current Visit: Yes Status: Acute Per Cardiology. (3) Nausea and vomiting Current Visit: Yes Status: Acute Resolved, per primary team. Qualifiers: Vomiting type: cyclical vomiting Vomiting Intractability: non-intractable Qualified Code(s): G43.A0 - Cyclical vomiting, not intractable Subjective Principal diagnosis: chest pain Interval history: Pt seen and examined, doing well. No c/o of chest pain, nausea, vomiting or diarrhea. Objective - Vital Signs Vital signs: Vital Signs Temp Pulse Resp BP Pulse Ox 01/31/18 08:15 99.3 F 72 16 145/90 93 01/31/18 07:03 99.3 F 70 16 150/92 93 01/31/18 06:00 146/87 01/31/18 05:00 147/88 01/31/18 04:00 147/96 01/31/18 03:35 68 16 135/85 90 01/31/18 03:00 147/87 01/31/18 02:00 138/89 01/31/18 01:00 140/89 01/31/18 00:00 162/93 01/30/18 23:30 152/97 01/30/18 23:00 164/103 01/30/18 22:30 159/97 01/30/18 22:00 173/105 01/30/18 21:30 163/106 01/30/18 21:15 168/99 01/30/18 21:00 173/104 01/30/18 20:30 177/109 01/30/18 20:00 165/121 01/30/18 19:35 99.4 F 71 16 163/100 92 01/30/18 19:30 163/100 01/30/18 18:45 76 162/91 01/30/18 18:30 76 154/86 01/30/18 18:15 75 147/90 01/30/18 17:45 71 165/102 01/30/18 17:43 67 18 162/101 93 01/30/18 17:30 69 162/101 01/30/18 17:21 64 160/94 01/30/18 17:17 74 174/113 01/30/18 17:01 63 168/97 01/30/18 16:30 67 179/109 01/30/18 16:14 97.8 F 60 18 179/107 94 01/30/18 15:50 74 151/91 94 01/30/18 15:30 65 159/103 01/30/18 15:00 63 151/94 01/30/18 14:45 68 156/93 01/30/18 14:30 68 156/95 01/30/18 14:15 65 153/94 01/30/18 14:00 64 163/98 01/30/18 13:43 67 172/91 01/30/18 13:00 72 181/99 94 01/30/18 12:40 171/103 01/30/18 12:35 64 174/109 01/30/18 12:00 181/98 01/30/18 11:33 98.7 F 64 18 148/95 94 01/30/18 11:08 77 148/95 92 Intake and Output 01/30/18 01/31/18 01/31/18 23:59 07:59 15:59 Intake Total 838.0 / 838.0 1264.3 / 1264.3 Output Total 1020 / 1020 930 / 930 Balance -182.0 / -182.0 334.3 / 334.3 Intake: IV Fluids 138.0 / 138.0 564.3 / 564.3 Heparin 25,000 UNIT/500 ML D5W 326 / 326 25,000 unit In 500 ml @ 9.7 UNIT/KG/HR 19.799 mls/hr IVC . Q24H [facility] Rx#:[id number] Nitroglycerin Premix 25 MG/250 124.0 / 124.0 238.3 / 238.3 ML 25 mg In 250 ml @ 5 MCG/MIN 3 mls/hr IVC .Q24H [facility] Rx#: [id number] Oral 700 / 700 700 / 700 Output: Urine 1020 / 1020 930 / 930 Other: Stool Size Moderate Large Stool Consistency soft soft Stool Color Brown Brown # Voids 1 # Bowel Movements 1 1 Weight 103 kg Blood Glucose* 95 Patient Weight 01/31/18 23:59 Weight 103 kg - General Appearance General appearance: Present: well-developed, well-nourished, appears started age EENT: Present: ATNC, hearing intact, vision intact Neck: Present: supple Respiratory: Present: clear Cardiology: Present: no edema, normal S1, normal S2 Gastrointestinal: Present: normoactive bowel sounds, no tenderness, no guarding Integumentary: Present: no rash, warm and dry Neurologic: Present: alert and oriented x3 Psychiatric: Present: mood/affect appropriate, cooperative - Lab 01/31/18 00:17 01/31/18 00:17 Most recent lab results Calcium 8.4 mg/dL (8.6-10.3) L 01/31/18 00:17 Magnesium 2.2 mg/dL (1.6-2.6) 01/30/18 01:40 Urine Creatinine 53 mg/dL 01/30/18 12:50 Urine Sodium 85.5 mEq/L 01/30/18 12:50 Urine Total Protein 81 mg/dL (1-14) H 01/30/18 12:50 Consult Discharge Plan - Plan Referrals: Razia Huynh CNP [Primary Care Provider] - 02/07/18 10:30 am Malcom Barajas CNP [Advanced Practice Nurse] - 02/24/18 10:00 am
[2018-01-31] MEDS ORDERED: Sodium Bicarbonate 75 MEQ in 0.45 % Sodium Chloride 1,000 ML IVC SCH (10:30)
--- NOTE | 2018-01-31 10:33 | Cardiology Progress Note ---
Date of Encounter: 01/31/18 Time of Encounter: 10:25 Assessment and Plan (1) NSTEMI (non-ST elevated myocardial infarction) Current Visit: Yes Status: Acute Typical chest pain symptoms, ischemic ECG changes. Troponin 0.97, 5.32. Continue to cycle until peak. Known hx of CAD s/p PCI with preserved LVEF in 2014. TTE 01/30/18: LVEF 60%, moderate cLVH, moderate LVDD, no significant valvular dysfunction, normal wall motion. Continue heparin gtt. Remains CP free, wean off NTG. Will start imdur. Continue BB, statin, plavix. Ideally recommend LHC when renal function allows; also may consider medically treating NSTEMI given preserved LVEF. Cardiac rehab consult. Risk factor reduction discussed. Will continue to follow. (2) Renal insufficiency Current Visit: Yes Status: Acute SUZIE on CKD. Reported history of polycystic kidney disease. Baseline SCr appears to be 1.8-2.0; SCr 3.20 upon admission, now 3.12 1 L given yesterday for hydration, will defer further recommendations to Nephrology. Avoid nephrotoxins . Consulted Nephrology (Dr. Whitten, [facility]); appreciate recommendations. (3) CAD (coronary artery disease) Current Visit: Yes Status: Chronic plan as above. Hx of CAD s/p PCI in 2015. Asa, statin, BB, nitrates and plavix. Qualifiers: Qualified Code(s): I25.110 - Atherosclerotic heart disease of [place] coronary artery with unstable angina pectoris Discussion w patient/family: The assessment and plan as outlined above was discussed with the patient and/or family members who expressed understanding and agreement. All questions were answered. Thank you for involving us in the care of your patient. Please call with any questions. The patient will be discussed and reviewed with Dr. Marques; changes to be made accordingly. Subjective Principal diagnosis: chest pain Interval history: Seen and examined. No chest pain reported overnight--remains on NTG gtt, will place order to wean. No shortness of breath, dyspnea reported. Renal function continues to decline, will hold off on LHC until stable. Objective Vital Signs, Last 4 Hours Temp Pulse Resp BP Pulse Ox 01/31/18 08:15 99.3 F 72 16 145/90 93 01/31/18 07:03 99.3 F 70 16 150/92 93 General: Conversant, No Apparent Distress HEENT: Atraumatic, Normocephaly, Mucus Membranes Moist Cardiac: Reg Rate and Rhythm, Normal S1 and S2 Lungs: Normal Breath Sounds Neuro: Alert and responsive Abdomen: Soft Skin: No rashes noted on visualized skin Musculoskeletal: No Chest Wall Tenderness Extremities: No Edema, Normal Pulses Results 01/31/18 00:17 01/31/18 00:17 Lab Results 01/30/18 01/30/18 01/30/18 09:44 17:05 17:05 WBC Hgb Hct Plt Count APTT 67.8 H Sodium Potassium Chloride Carbon Dioxide BUN Creatinine Glucose Calcium Total Bilirubin AST ALT Alkaline Phosphatase Troponin I 8.52 H* 7.35 H* 01/31/18 01/31/18 01/31/18 00:17 00:17 00:17 WBC 7.3 Hgb 12.5 L Hct 38.0 Plt Count 186 APTT 57.3 H Sodium 136 Potassium 4.4 Chloride 109 H Carbon Dioxide 22 L BUN 28 H Creatinine 3.14 H Glucose 107 H Calcium 8.4 L Total Bilirubin 0.5 AST 34 ALT 14 Alkaline Phosphatase 40 Troponin I 01/31/18 05:57 WBC Hgb Hct Plt Count APTT 98.7 H D Sodium Potassium Chloride Carbon Dioxide BUN Creatinine Glucose Calcium Total Bilirubin AST ALT Alkaline Phosphatase Troponin I Active Medications Acetaminophen (Tylenol) 650 mg PO Q6HR PRN PRN Reason: Mild Pain/Fever Stop: 07/31/18 18:45 Acetylcysteine (Acetylcysteine 20%) 600 mg PO BID [facility] Stop: 01/31/18 21:01 Last Admin: 01/30/18 21:22 Dose: 600 mg Albuterol/Ipratropium (Duoneb) 3 ml IH [id number] PRN PRN Reason: Shortness Of Breath/Wheezing Stop: 07/31/18 19:40 Amlodipine Besylate (Norvasc) 5 mg PO DAILY [facility] PRN Reason: Protocol Stop: 08/01/18 22:31 Last Admin: 01/31/18 09:18 Dose: 5 mg Aspirin (Aspirin Ec) 81 mg PO DAILY [facility] Stop: 07/31/18 19:01 Last Admin: 01/31/18 09:17 Dose: 81 mg Atorvastatin Calcium (Lipitor) 40 mg PO HS [facility] Stop: 08/01/18 21:01 Last Admin: 06/24/18 20:49 Dose: 40 mg Clopidogrel Bisulfate (Plavix) 75 mg PO DAILY [facility] Stop: 08/02/18 09:01 Last Admin: 01/31/18 09:18 Dose: 75 mg Guaifenesin (Mucinex) 600 mg PO BID PRN PRN Reason: Cough Stop: 07/31/18 19:11 Heparin Sodium (Porcine) (Heparin) 4,000 unit IVP Q6HR PRN PRN Reason: SEE COMMENTS Stop: 07/31/18 18:56 Heparin Sodium (Porcine) (Heparin) 2,000 unit IVP Q6H PRN PRN Reason: SEE COMMENTS Stop: 07/31/18 18:56 Last Admin: 01/31/18 01:44 Dose: 2,000 unit Heparin Sodium/Dextrose (Heparin 25,000 Unit/500 Ml D5w) 25,000 unit in 500 mls @ 19.799 mls/hr IVC .Q24H [facility]; 9.7 UNIT/KG/HR PRN Reason: Protocol Stop: 07/31/18 19:01 Last Titration: 01/31/18 07:21 Dose: 10.28 unit/kg/hr, 21 mls/hr Nitroglycerin (Nitroglycerin Premix 25 Mg/250 Ml) 25 mg in 250 mls @ 3 mls/hr IVC .Q24H [facility]; 5 MCG/MIN PRN Reason: Protocol Stop: 07/31/18 19:01 Last Titration: 01/31/18 04:09 Dose: 15 mcg/min, 9 mls/hr Sodium Bicarbonate 75 meq/ (Sodium Chloride) 1,075 mls @ 75 mls/hr IVC .[id number] [facility] Stop: 02/01/18 00:49 Metoprolol Tartrate (Lopressor) 12.5 mg PO BID [facility] Stop: 08/01/18 21:01 Last Admin: 01/31/18 09:18 Dose: 12.5 mg Naloxone HCl (Narcan) 0.4 mg IVP Q2MIN PRN PRN Reason: SEE COMMENTS Stop: 07/31/18 18:45 Nicotine Polacrilex (Nicorette Gum) 2 mg BC Q2HWA PRN PRN Reason: Nicotine Cravings Stop: 07/31/18 19:17 Ondansetron HCl (Zofran) 4 mg IVP Q6HR PRN; Protocol PRN Reason: Nausea And Vomiting Stop: 07/31/18 19:40 - Imaging and Cardiology Echo: report reviewed Other Results: 12 hour tele: avg HR=67 SR. No events noted. - EKG Interpretation EKG results cardiology: personally reviewed Consult Discharge Plan - Plan Referrals: Razia Huynh CNP [Primary Care Provider] - 02/07/18 10:30 am Malcom Barajas CNP [Advanced Practice Nurse] - 02/24/18 10:00 am
[2018-01-31] MEDS: *HR* Acetylcysteine 20% 600 MG/3 ML ORAL SYRINGE PO SCH ×2 (11:22→20:54)
[2018-01-31] MEDS: Isosorbide MONOnitrate (24 HR) 60 MG TAB.ER.24H PO SCH (12:08)
[2018-01-31] MEDS ORDERED: amLODIPine 5 MG TABLET PO ONE (12:30)
--- NOTE | 2018-01-31 16:54 | Internal Med Progress Note ---
Date of Encounter: 01/31/18 Time of Encounter: 16:52 - Assessment and plan (1) NSTEMI (non-ST elevated myocardial infarction) Current Visit: Yes Status: Acute Assessment and plan: No chest pain at this time. History of CAD status post stent 1 in 2014. Trending down troponin level but also has elevated creatinine level. His creatinine level is rising therefore planned from cardiac standpoint continue medical management heparin drip, weaning off nitroglycerin glyceride but start him do. Continue beta abner, statin, Plavix. Plan for heart catheter when renal function allows. Cardiac rehabilitation consultation. On board training intern waiting report of renal ultrasound and a started Mucomyst and discussed with patient for possible hemodialysis if kidney function get worse after the heart catheter procedure. Echocardiogram revealed with preserved LV function. (2) HTN (hypertension) Current Visit: Yes Status: Inactive Assessment and plan: Hx of chronic HTN. Monitor pt. and VS. Continue Carvedilol and Norvasc. Qualifiers: Hypertension type: essential hypertension Qualified Code(s): I10 - Essential (primary) hypertension (3) Renal failure (ARF), acute on chronic Current Visit: Yes Status: Inactive Assessment and plan: Worsening creatinine level. Renal ultrasound report pending. Shell Trim Tool Setter on board and advised to continue Mucomyst and is started bicarbonate drip.. Monitor BMP. Hx of polycystic kidneys. Will use IV fluids judiciously if warranted and avoid nephrotoxins. Monitor I&O Qualifiers: Acute renal failure type: unspecified Chronic kidney disease stage: unspecified stage Qualified Code(s): N17.9 - Acute kidney failure, unspecified ; N18.9 - Chronic kidney disease, unspecified (4) CAD (coronary artery disease) Current Visit: Yes Status: Chronic Assessment and plan: Contributing above problem. Hx of chronic CAD. Heart catheterization in 2015 w/stent x1. Continuous cardiac telemetry. Lipitor continue Qualifiers: Coronary Disease-Associated Artery/Lesion type: [place] artery [place] vs. transplanted heart: [place] heart Associated angina: with unstable angina Qualified Code(s): I25.110 - Atherosclerotic heart disease of [place] coronary artery with unstable angina pectoris (5) Emphysema of lung Current Visit: Yes Status: Chronic Assessment and plan: Stable. Hx of chronic emphysema. Stable. Pt. reports hx of smoking 1 PPD but quitting 15 years ago. Supplemental O2 w/titration and SpO2 monitoring. DuoNebs Q6HR PRN. Qualifiers: Emphysema type: unspecified Qualified Code(s): J43.9 - Emphysema, unspecified (6) Nausea and vomiting Current Visit: Yes Status: Acute Assessment and plan: Better. continue IVP Zofran 4 mg Q6HR PRN. Qualifiers: Vomiting type: cyclical vomiting Vomiting Intractability: non-intractable Qualified Code(s): G43.A0 - Cyclical vomiting, not intractable (7) DVT prophylaxis Current Visit: Yes Status: Acute Assessment and plan: Patient placed on heparin drip per Cardiology d/t CP sx. Monitor pt. for signs of bleeding. - Time Spent With Patient Total time spent is greater than 50% in coordination of care (as documented) at patient's floor/unit and/or counseling patient: 25 - 35 minutes - Subjective Interval history: no active chest pain now.family at bed side. denies fever chills nausea vomiting headache dizziness shortness of breath. Review the lab worsening creatinine level. - Constitutional Vitals: Temp Pulse Resp BP Pulse Ox 98.2 F 68 16 143/89 94 01/31/18 16:20 01/31/18 16:20 01/31/18 16:20 01/31/18 16:20 01/31/18 16:20 General appearance: Present: A&O X 3, no acute distress ( ) Exam: General appearance: No acute distress, A&O X 3 Head exam: Atraumatic Eye exam: EOMI, PERRLA ENT exam: Moist oral mucosa Neck nontender, supple Respiratory exam: diminished BS bilaterally Cardiovascular exam: Regular rate and rhythm Abdominal exam: Soft, nontender, nondistended, positive bowel sounds Extremities exam: No calf tenderness, no pedal edema Present: Skin- warm, dry, intact Neurological exam: Alert, awake, oriented 3, CN II-XII intact, no focal deficits. No facial droop. Normal speech. Internal Medicine: Result - Labs CBC & Chem 7: 01/31/18 00:17 01/31/18 00:17 Labs: Short CBC 01/31/18 Range/Units 00:17 WBC 7.3 (4.3-11.1) K/mcL Hgb 12.5 L (12.9-16.9) g/dL Hct 38.0 (37.5-50.1) % Plt Count 186 (140-400) K/mcL Neutrophils # 4.7 (1.6-8.9) K/mcL BMP 01/31/18 00:17 Sodium 136 Potassium 4.4 Chloride 109 H Carbon Dioxide 22 L BUN 28 H Creatinine 3.14 H Glucose 107 H Calcium 8.4 L Cardiac Enzymes 01/30/18 Range/Units 17:05 Troponin I 7.35 H* (< 0.04) ng/mL Liver Function 01/31/18 Range/Units 00:17 Total Bilirubin 0.5 (0.3-1.0) mg/dL AST 34 (13-39) Units/L ALT 14 (7-52) Units/L Alkaline Phosphatase 40 (34-104) Units/L Albumin 3.4 L (3.5-5.7) g/dL - ABG Interpretation ABG results: PT/INR, D-dimer PT 11.2 Seconds (9.4-12.1) 01/29/18 19:13 Consult Discharge Plan - Plan Referrals: Razia Huynh CNP [Primary Care Provider] - 02/07/18 10:30 am Malcom Barajas CNP [Advanced Practice Nurse] - 02/24/18 10:00 am
[2018-01-31] MEDS: Heparin 25,000 UNIT/500 ML D5W 25,000 UNIT/500 ML BAG IVC SCH (17:33)
[2018-01-31 23:30] LABS: Estimated Average Glucose 108 mg/dl; Hemoglobin A1C 5.4 %
[2018-02-01 02:09] LABS: Basophils % 0.5 %; Eosinophils # 0.3 K/mcL (0.0-0.6); Eosinophils % 5.3 %; Hematocrit 37.3 % (37.5-50.1); Hemoglobin 12.5 g/dL (12.9-16.9); Immature Granulocytes % 0.2 % (0-4); Lymphocytes # 1.7 K/mcL (0.6-4.6); Lymphocytes % 27.4 %; Mean Corpuscular HGB Conc 33.5 g/dL (31.6-35.5); Mean Corpuscular Hemoglobin 28.5 pg (28.0-33.3); Mean Corpuscular Volume 85.2 fL (83.0-100.0); Mean Platelet Volume 10.6 fL (9.4-12.4); Monocytes # 0.6 K/mcL (0.0-1.3); Monocytes % 10.3 %; Neutrophils # 3.4 K/mcL (1.6-8.9); Platelet Count 181 K/mcL (140-400); Red Blood Count 4.38 M/mcL (4.19-5.50); Red Cell Distribution Width 13.6 % (11.5-14.5); Segmented Neutrophils % 56.3 %
[2018-02-01 02:28] LABS: Albumin 3.4 g/dL (3.5-5.7); Albumin/Globulin Ratio 1.3 (1.1-2.2); Bilirubin,Total 0.4 mg/dL (0.3-1.0); Calcium 8.5 mg/dL (8.6-10.3); Globulin 2.7 g/dL (2.4-3.5); Potassium 4.1 mEq/L (3.5-5.1); Total Protein 6.1 g/dL (6.4-8.9)
[2018-02-01] MEDS: Aspirin Enteric Coated 81 MG Tablet PO SCH (08:04)
[2018-02-01] MEDS: amLODIPine 5 MG TABLET PO SCH (08:05)
[2018-02-01] MEDS: Isosorbide MONOnitrate (24 HR) 60 MG TAB.ER.24H PO SCH (08:05)
--- NOTE | 2018-02-01 10:21 | Cardiology Progress Note ---
Date of Encounter: 02/01/18 Time of Encounter: 10:00 Assessment and Plan (1) NSTEMI (non-ST elevated myocardial infarction) Current Visit: Yes Status: Acute Typical chest pain symptoms, ischemic ECG changes. Troponin 0.97, 5.32. Continue to cycle until peak. Known hx of CAD s/p PCI with preserved LVEF in 2014. TTE 01/30/18: LVEF 60%, moderate cLVH, moderate LVDD, no significant valvular dysfunction, normal wall motion. Remains CP free off NTG gtt. Discussed with Dr. Marques, will stop IV heparin gtt as infused >72 hours; start heparin SC for VTE prophylaxis. Continue BB (will change to home coreg), statin , nitrates and plavix. Continue to adjust BB to improve BP control. Ideally recommend LHC when renal function allows; also may consider medically treating NSTEMI given preserved LVEF. Discussed with , long discussion today with patient and family regarding plan, patient has remained chest pain free since admission and TTE shows preserved LVEF can consider to treat medically given SUZIE on CKD--may have new baseline SCr. Encouraged to ambulate in hallways to evaluate for CP. If chest pain would recur, may need to consider LHC. Cardiac rehab consult. Risk factor reduction discussed. Will continue to follow. (2) Renal insufficiency Current Visit: Yes Status: Acute SUZIE on CKD. Reported history of polycystic kidney disease. Baseline SCr appears to be 1.8-2.0; SCr 3.20 upon admission, now 2.9 1 L sodium bicarb given yesterday for hydration, will defer further recommendations to Nephrology. Avoid nephrotoxins . Consulted Nephrology (Dr. Whitten, [facility]); appreciate recommendations. (3) CAD (coronary artery disease) Current Visit: Yes Status: Chronic plan as above. Hx of CAD s/p PCI in 2014. Asa, statin, BB, nitrates and plavix. Qualifiers: Coronary Disease-Associated Artery/Lesion type: [place] artery [place] vs. transplanted heart: [place] heart Associated angina: with unstable angina Qualified Code(s): I25.110 - Atherosclerotic heart disease of [place] coronary artery with unstable angina pectoris Discussion w patient/family: The assessment and plan as outlined above was discussed with the patient and/or family members who expressed understanding and agreement. All questions were answered. Thank you for involving us in the care of your patient. Please call with any questions. The patient will be discussed and reviewed with Dr. Marques; changes to be made accordingly. Subjective Principal diagnosis: chest pain Interval history: Seen and examined. No chest pain reported overnight. Blood pressure control seems to be improving. No shortness of breath, dyspnea reported. Objective Vital Signs, Last 4 Hours Temp Pulse Resp BP Pulse Ox 02/01/18 08:33 68 02/01/18 07:27 98.4 F 69 18 151/98 93 Results 02/01/18 01:39 02/01/18 01:39 Lab Results 01/31/18 01/31/18 02/01/18 13:42 17:42 01:39 WBC 6.0 Hgb 12.5 L Hct 37.3 L Plt Count 181 APTT 61.1 H 55.8 H Sodium Potassium Chloride Carbon Dioxide BUN Creatinine Glucose Calcium Total Bilirubin AST ALT Alkaline Phosphatase 02/01/18 02/01/18 02/01/18 01:39 01:39 07:01 WBC Hgb Hct Plt Count APTT 65.1 H 40.1 H Sodium 137 Potassium 4.1 Chloride 108 H Carbon Dioxide 22 L BUN 29 H Creatinine 2.97 H Glucose 98 Calcium 8.5 L Total Bilirubin 0.4 AST 18 ALT 12 Alkaline Phosphatase 39 Consult Discharge Plan - Plan Referrals: Razia Huynh CNP [Primary Care Provider] - 02/07/18 10:30 am Malcom Barajas CNP [Advanced Practice Nurse] - 02/24/18 10:00 am
--- NOTE | 2018-02-01 15:14 | Internal Med Progress Note ---
Date of Encounter: 02/01/18 Time of Encounter: 15:12 - Assessment and plan (1) NSTEMI (non-ST elevated myocardial infarction) Current Visit: Yes Status: Acute Assessment and plan: No chest pain at this time. Plan for heart catheter tomorrow. Corsetier on board and okay to proceed for heart catheter from nephrology stand point . History of CAD status post stent 1 in 2014. discontinued heparin drip and nitroglycerin. Continue beta abner, statin, Plavix. 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 Echocardiogram revealed with preserved LV function. Renal ultrasound with bilateral renal cortical cyst -polycystic renal disease (2) HTN (hypertension) Current Visit: Yes Status: Inactive Assessment and plan: Well controlled Hx of chronic HTN. Monitor pt. and VS. Continue Carvedilol and Norvasc. Qualifiers: Hypertension type: essential hypertension Qualified Code(s): I10 - Essential (primary) hypertension (3) Renal failure (ARF), acute on chronic Current Visit: Yes Status: Inactive Assessment and plan: Better creatinine level. Corsetier on board and advised to continue Mucomyst and started bicarbonate drip. Monitor BMP. Hx of polycystic kidneys. Will use IV fluids judiciously if warranted and avoid nephrotoxins. Monitor I&O Qualifiers: Acute renal failure type: unspecified Chronic kidney disease stage: unspecified stage Qualified Code(s): N17.9 - Acute kidney failure, unspecified ; N18.9 - Chronic kidney disease, unspecified (4) CAD (coronary artery disease) Current Visit: Yes Status: Chronic Assessment and plan: Contributing above problem Hx of chronic CAD. Heart catheterization in 2015 w/stent x1. Continuous cardiac telemetry. Lipitor continue Qualifiers: Coronary Disease-Associated Artery/Lesion type: [place] artery [place] vs. transplanted heart: [place] heart Associated angina: with unstable angina Qualified Code(s): I25.110 - Atherosclerotic heart disease of [place] coronary artery with unstable angina pectoris (5) Emphysema of lung Current Visit: Yes Status: Chronic Assessment and plan: Stable. Hx of chronic emphysema. Stable. Pt. reports hx of smoking 1 PPD but quitting 15 years ago. Supplemental O2 w/titration and SpO2 monitoring. DuoNebs Q6HR PRN. Qualifiers: Emphysema type: unspecified Qualified Code(s): J43.9 - Emphysema, unspecified (6) Nausea and vomiting Current Visit: Yes Status: Acute Assessment and plan: Better. continue IVP Zofran 4 mg Q6HR PRN. Qualifiers: Vomiting type: cyclical vomiting Vomiting Intractability: non-intractable Qualified Code(s): G43.A0 - Cyclical vomiting, not intractable (7) DVT prophylaxis Current Visit: Yes Status: Acute Assessment and plan: SCDs, heparin subcutaneous. - Time Spent With Patient Total time spent is greater than 50% in coordination of care (as documented) at patient's floor/unit and/or counseling patient: 25 - 35 minutes - Subjective Interval history: no active chest pain now. family at bed side. Heparin drip turned off By cardiology denies fever chills nausea vomiting headache dizziness shortness of breath. Review the lab trending down creatinine level. - Constitutional Vitals: Temp Pulse Resp BP Pulse Ox 98.3 F 68 18 135/90 94 02/01/18 11:12 02/01/18 11:12 02/01/18 11:12 02/01/18 11:12 02/01/18 11:12 General appearance: Present: A&O X 3, no acute distress ( ) Exam: General appearance: No acute distress, A&O X 3 Head exam: Atraumatic Eye exam: EOMI, PERRLA ENT exam: Moist oral mucosa Neck nontender, supple Respiratory exam: diminished BS bilaterally- could be due to body habitus Cardiovascular exam: Regular rate and rhythm Abdominal exam: Soft, nontender, nondistended, positive bowel sounds Extremities exam: No calf tenderness, no pedal edema Present: Skin- warm, dry, intact Neurological exam: Alert, awake, oriented 3, CN II-XII intact, no focal deficits. No facial droop. Normal speech. Internal Medicine: Result - Labs CBC & Chem 7: 02/01/18 01:39 02/01/18 01:39 Labs: Short CBC 02/01/18 Range/Units 01:39 WBC 6.0 (4.3-11.1) K/mcL Hgb 12.5 L (12.9-16.9) g/dL Hct 37.3 L (37.5-50.1) % Plt Count 181 (140-400) K/mcL Neutrophils # 3.4 (1.6-8.9) K/mcL BMP 02/01/18 01:39 Sodium 137 Potassium 4.1 Chloride 108 H Carbon Dioxide 22 L BUN 29 H Creatinine 2.97 H Glucose 98 Calcium 8.5 L Liver Function 02/01/18 Range/Units 01:39 Total Bilirubin 0.4 (0.3-1.0) mg/dL AST 18 (13-39) Units/L ALT 12 (7-52) Units/L Alkaline Phosphatase 39 (34-104) Units/L Albumin 3.4 L (3.5-5.7) g/dL - ABG Interpretation ABG results: PT/INR, D-dimer PT 11.2 Seconds (9.4-12.1) 01/29/18 19:13 - Impressions Impressions Retroperitoneum Ultrasound 01/31/18 19:00 IMPRESSION: Multiple bilateral renal cortical cysts compatible with polycystic renal disease. No hydronephrosis or shadowing renal pelvic stones. D/ / Génesis Vaz Cha, MD / Génesis Vaz Cha, MD Interpreting Provider: Génesis Vaz Cha, MD Consult Discharge Plan - Plan Referrals: Razia Huynh CNP [Primary Care Provider] - 02/07/18 10:30 am Malcom Barajas CNP [Advanced Practice Nurse] - 02/24/18 10:00 am
--- NOTE | 2018-02-01 16:36 | Electrocardiograph Report ---
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
--- NOTE | 2018-02-01 16:49 | Electrocardiograph Report ---
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
[2018-02-01] MEDS: *HR* Heparin 5,000 UNIT/ML VIAL SQ SCH (17:12)
[2018-02-01] MEDS ORDERED: Sodium Bicarbonate 75 MEQ in 0.45 % Sodium Chloride 1,000 ML IVC SCH (22:45)
--- NOTE | 2018-02-01 22:53 | Nephrology Progress Note ---
Date of Encounter: 02/01/18 Time of Encounter: 09:50 - Assessment and Plan (1) Acute kidney injury superimposed on chronic kidney disease Current Visit: Yes Status: Acute This is likely the patient's new baseline. Patient with polycystic kidney disease. Will continue hydration and mucomyst in anticipation of cardiac cath. (2) CKD (chronic kidney disease), stage III Current Visit: Yes Status: Acute (3) NSTEMI (non-ST elevated myocardial infarction) Current Visit: Yes Status: Acute Subjective Principal diagnosis: chest pain Interval history: Patient seen and evaluated. His is at his bedside. Objective - Vital Signs Vital signs: Vital Signs Temp Pulse Resp BP Pulse Ox 02/01/18 20:43 70 02/01/18 18:42 99 F 77 18 166/101 94 02/01/18 15:52 99.2 F 70 18 153/94 94 02/01/18 11:12 98.3 F 68 18 135/90 94 02/01/18 08:33 68 02/01/18 07:27 98.4 F 69 18 151/98 93 02/01/18 03:15 98.2 F 68 17 149/94 93 01/31/18 23:46 97.9 F 72 17 156/88 94 Intake and Output 02/01/18 02/01/18 02/01/18 07:59 15:59 23:59 Intake Total 846 / 846 1160 / 1160 Output Total 900 / 900 Balance -900 / -900 846 / 846 1160 / 1160 Intake: IV Fluids 366 / 366 Heparin 25,000 UNIT/500 ML D5W 366 / 366 25,000 unit In 500 ml @ 9.7 UNIT/KG/HR 19.799 mls/hr IVC . Q24H KLARISSA Rx#:[id number] Oral 480 / 480 1160 / 1160 Output: Urine 900 / 900 Other: Meal Lunch Dinner Percent of Meal Consumed 100% 90% Stool Size Large Stool Consistency soft Stool Characteristics Normal for Patient Stool Color Brown # Bowel Movements 1 Weight 102.3 kg Patient Weight 02/01/18 23:59 Weight 102.3 kg - General Appearance General appearance: Present: well-developed, well-nourished EENT: Present: ATNC Neck: Present: supple Respiratory: Present: course breath sounds Cardiology: Present: regular rate Integumentary: Present: warm and dry Neurologic: Present: alert and oriented x3 Musculoskeletal: Present: no cyanosis Psychiatric: Present: mood/affect appropriate - Lab 02/01/18 01:39 02/01/18 01:39 Most recent lab results Calcium 8.5 mg/dL (8.6-10.3) L 02/01/18 01:39 Magnesium 2.2 mg/dL (1.6-2.6) 01/30/18 01:40 Urine Creatinine 53 mg/dL 01/30/18 12:50 Urine Sodium 85.5 mEq/L 01/30/18 12:50 Urine Total Protein 81 mg/dL (1-14) H 01/30/18 12:50 Consult Discharge Plan - Plan Referrals: Razia Huynh CNP [Primary Care Provider] - 02/07/18 10:30 am Malcom Barajas CNP [Advanced Practice Nurse] - 02/24/18 10:00 am
[2018-02-02] MEDS: *HR* Heparin 5,000 UNIT/ML VIAL SQ SCH ×2 (06:11→17:24)
[2018-02-02 07:05] LABS: Basophils % 0.4 %; Eosinophils # 0.3 K/mcL (0.0-0.6); Eosinophils % 3.8 %; Hemoglobin 13.4 g/dL (12.9-16.9); Immature Granulocytes % 0.3 % (0-4); Lymphocytes # 0.9 K/mcL (0.6-4.6); Mean Corpuscular HGB Conc 33.5 g/dL (31.6-35.5); Mean Corpuscular Hemoglobin 28.6 pg (28.0-33.3); Mean Corpuscular Volume 85.5 fL (83.0-100.0); Mean Platelet Volume 10.7 fL (9.4-12.4); Monocytes # 0.6 K/mcL (0.0-1.3); Monocytes % 8.8 %; Platelet Count 219 K/mcL (140-400); Red Blood Count 4.68 M/mcL (4.19-5.50); Red Cell Distribution Width 14.1 % (11.5-14.5); Segmented Neutrophils % 73.7 %
[2018-02-02 07:16] LABS: Albumin 3.6 g/dL (3.5-5.7); Albumin/Globulin Ratio 1.2 (1.1-2.2); Bilirubin,Total 0.4 mg/dL (0.3-1.0); Calcium 8.9 mg/dL (8.6-10.3); Globulin 2.9 g/dL (2.4-3.5); Potassium 4.1 mEq/L (3.5-5.1); Total Protein 6.5 g/dL (6.4-8.9)
[2018-02-02] MEDS: Isosorbide MONOnitrate (24 HR) 60 MG TAB.ER.24H PO SCH (07:52)
[2018-02-02] MEDS: amLODIPine 5 MG TABLET PO SCH (07:52)
[2018-02-02] MEDS: *HR* Acetylcysteine 20% 600 MG/3 ML ORAL SYRINGE PO SCH ×2 (07:53→20:31)
[2018-02-02] MEDS: Aspirin Enteric Coated 81 MG Tablet PO SCH (07:53)
--- NOTE | 2018-02-02 10:03 | Nephrology Progress Note ---
Date of Encounter: 02/02/18 Time of Encounter: 09:59 - Assessment and Plan (1) Acute kidney injury superimposed on chronic kidney disease Current Visit: Yes Status: Acute US confirms polycystic kidney disease. C today. Continue HCO3 infusion and force fluids after heart cath. Avoid nephrotoxins and renal dose all medications. UOP 625 today and 1700 yesterday. GFR 21 unchanged from yesterday. Will continue to watch renal function, this could be his new baseline GFR. (2) NSTEMI (non-ST elevated myocardial infarction) Current Visit: Yes Status: Acute Per Cardiology. (3) Nausea and vomiting Current Visit: Yes Status: Acute Resolved, per primary team. Qualifiers: Vomiting type: cyclical vomiting Vomiting Intractability: unspecified Qualified Code(s): G43.A0 - Cyclical vomiting, not intractable Subjective Principal diagnosis: chest pain Interval history: Pt seen and examined, doing well. No c/o of chest pain, nausea, vomiting or diarrhea. Objective - Vital Signs Vital signs: Vital Signs Temp Pulse Resp BP Pulse Ox 02/02/18 07:59 98.7 F 73 18 163/100 96 02/02/18 03:17 82 18 148/78 94 02/02/18 03:15 148/78 02/02/18 02:30 172/107 02/01/18 23:26 98.5 F 79 18 171/104 96 02/01/18 22:30 186/102 02/01/18 21:45 181/101 02/01/18 21:15 182/110 02/01/18 21:00 187/106 02/01/18 20:43 70 02/01/18 18:42 99 F 77 18 166/101 94 02/01/18 15:52 99.2 F 70 18 153/94 94 02/01/18 11:12 98.3 F 68 18 135/90 94 Intake and Output 02/01/18 02/02/18 02/02/18 23:59 07:59 15:59 Intake Total 1160 / 1160 Output Total 800 / 800 425 / 425 200 / 200 Balance 360 / 360 -425 / -425 -200 / -200 Intake: Oral 1160 / 1160 Output: Urine 800 / 800 425 / 425 200 / 200 Other: Meal Dinner NPO Percent of Meal Consumed 90% 0% Weight 100.1 kg Patient Weight 02/02/18 23:59 Weight 100.1 kg - General Appearance General appearance: Present: well-developed, well-nourished, appears started age EENT: Present: ATNC, hearing intact, vision intact Neck: Present: supple Respiratory: Present: clear Cardiology: Present: no murmurs, no edema, normal S1, normal S2 Gastrointestinal: Present: normoactive bowel sounds, no tenderness, no guarding Integumentary: Present: no rash, warm and dry Neurologic: Present: alert and oriented x3 Psychiatric: Present: mood/affect appropriate, cooperative - Lab 02/02/18 06:08 02/02/18 06:08 Most recent lab results Calcium 8.9 mg/dL (8.6-10.3) 02/02/18 06:08 Magnesium 2.2 mg/dL (1.6-2.6) 01/30/18 01:40 Urine Creatinine 53 mg/dL 01/30/18 12:50 Urine Sodium 85.5 mEq/L 01/30/18 12:50 Urine Total Protein 81 mg/dL (1-14) H 01/30/18 12:50 Consult Discharge Plan - Plan Referrals: Razia Huynh CNP [Primary Care Provider] - 02/07/18 10:30 am Malcom Barajas CNP [Advanced Practice Nurse] - 02/24/18 10:00 am
--- NOTE | 2018-02-02 10:22 | Event Note ---
Date of Encounter: 02/02/18 Time of Encounter: 10:08 - Cardiology Event Note [facility] planned for today for evaluation of NSTEMI. Troponin elevation up to 8.52 and trending down. C/o palpitations last night and left arm pain received by pain medication. Telemetry review shows NSR. One 9 beat run SVT noted last night. No concerning arrhythmias seen. R/B/A of [facility] reviewed including worsening renal function and patient would like to proceed. Nephrology following , appreciate input. B/p noted to be elevated. Hydralizine IV ordered PRN. Continue norvasc and carvedilol. Will not increase carvedilol due to HR in the 50's this morning. Consider adding oral hydralizine if needed. Vital Signs Temp Pulse Resp BP Pulse Ox 02/02/18 07:59 98.7 F 73 18 163/100 96 02/02/18 03:17 82 18 148/78 94 02/02/18 03:15 148/78 02/02/18 02:30 172/107 02/01/18 23:26 98.5 F 79 18 171/104 96 02/01/18 22:30 186/102 02/01/18 21:45 181/101 02/01/18 21:15 182/110 02/01/18 21:00 187/106 02/01/18 20:43 70 02/01/18 18:42 99 F 77 18 166/101 94 02/01/18 15:52 99.2 F 70 18 153/94 94 02/01/18 11:12 98.3 F 68 18 135/90 94 Intake and Output 02/01/18 02/02/18 02/02/18 23:59 07:59 15:59 Intake Total 1160 / 1160 Output Total 800 / 800 425 / 425 200 / 200 Balance 360 / 360 -425 / -425 -200 / -200 Intake: Oral 1160 / 1160 Output: Urine 800 / 800 425 / 425 200 / 200 Other: Meal Dinner NPO Percent of Meal Consumed 90% 0% Weight 100.1 kg Patient Weight 02/02/18 23:59 Weight 100.1 kg
[2018-02-02 11:52] LABS: Kappa Qnt Free Light Chains 6.99 mg/dL (0.33-1.94); Lambda Qnt Free Light Chains 4.72 mg/dL (0.57-2.63)
[2018-02-02] MEDS ORDERED: Nitroglycerin 1,000 MCG/10 ML VIAL IV ONE (13:37)
[2018-02-02] MEDS ORDERED: Heparin 1,000 UNITS/500 mL 500 ML ONE (13:37)
[2018-02-02] MEDS ORDERED: 0.9 % Sodium Chloride 1,000 ML ONE ×2 (13:37→14:34)
[2018-02-02] MEDS ORDERED: *HR* Heparin 10,000 UNIT/10 ML VIAL ONE (13:37)
[2018-02-02] MEDS ORDERED: ISOVUE-370 200 ML INFUS..BTL IV ONE (13:37)
[2018-02-02] MEDS ORDERED: *HR* FentaNYL (PF) 100 MCG/2 ML VIAL ONE (14:49)
[2018-02-02] MEDS ORDERED: *HR* Midazolam HCl 2 MG/2 ML VIAL ONE (14:49)
--- NOTE | 2018-02-02 14:50 | Pre-Sedation Evaluation ---
Pre-sedation evaluation - Pre-sedation checklist Date of procedure: 02/02/18 Procedure: Heart cath Recent Vitals: Last Vital Signs Temp 98.8 F 02/02/18 11:38 Pulse 73 02/02/18 11:38 Resp 18 02/02/18 11:38 BP 146/95 02/02/18 11:38 Pulse Ox 93 02/02/18 11:38 H&P (including ROS) documented in medical record: Yes Previous reaction to sedatives/anesthetics: No Dietary Status: NPO after Midnight Dentition: No loose teeth or bridges, full dentition ASA Classification *see protocol: CLASS II-Mild systemic disease Cardiac Registry (Cardio Only) - Functional Capacity Functional Capacity: >=4 METS with symptoms - Clincal Frailty Scale Clinical Frailty Scale: Mildly Frail
[2018-02-02] MEDS ORDERED: Tirofiban 12.5 MG/250ML 12.5 MG/250 ML BAG ONE (15:04)
[2018-02-02] MEDS ORDERED: *HR* Ticagrelor 90 MG TABLET ONE (15:26)
[2018-02-02] MEDS ORDERED: Tirofiban 12.5 MG/250ML 12.5 MG/250 ML BAG IVC SCH (15:30)
--- NOTE | 2018-02-02 15:53 | Invasive Diagnostic Lab Proc ---
Name: Joslyn Greenfield Date of Study: 02/02/2018 Date: 1950 Ht: 70.1in Medical Record#: [id number] Age: 67 Wt: 220.46lb Gender: Male BSA: 2.18 Order #: [id number] BMI: 31.56 Physicians Procedure Physician: Konstantin Tuttle MD Referring MD: Referring MD: Staff Name Position Time In Adam Gomez RT (R) Scrub 02:41 PM Prem Garcia RN Automatic Door Mechanic 02:42 PM Kodi Mills RN Automatic Door Mechanic 02:42 PM Indications Indication Non-Stemi Procedures Performed Procedure PRQ CARD BIENVENIDO STENT W/ANGIO 1 VSL PRQ CARDIAC ANGIO ADDL ART Pre-Procedure Checklist Pt not NPO for procedure and MD aware. Plan of Care Patient will tolerate the procedure without complications. Adequate level of comfort will be maintained. Hemodynamics will remain stable Patient will recover from procedure without complications. Respiratory function will be maintained. Cardiac rhythm will remain stable. Patient temperature will be maintained. Patient and/or family have verbalized understanding of the procedure. Patient Education Allergies No Known Allergies NKDA Vital Signs Time BP (mmHg) HR (bpm) O2 Sat. RR (bpm) LOC 02:44 PM / % 5 = Fully awake and oriented or at pre-proc level 02:44 PM / % 4 = Oriented but drowsy 03:14 PM / % 5 = Fully awake and oriented or at pre-proc level 02:47 PM 155 / 100 151 97 % 02:52 PM 153 / 93 79 98 % 02:57 PM 143 / 97 76 96 % 03:02 PM 131 / 94 76 93 % 03:07 PM 140 / 80 77 95 % 03:12 PM 134 / 85 78 95 % 03:17 PM 146 / 91 80 95 % 03:22 PM 135 / 103 73 97 % Procedural Medications Time Medication Dose Units Method Given By 02:49 PM Oxygen 2 L/min nasal cannula Prem Garcia RN 02:50 PM Versed 1 mg Intravenous Prem Garcia RN 02:50 PM Fentanyl 50 mcg Intravenous Prem Garcia RN 02:52 PM Lidocaine 2% 10 ml Subcutaneous Konstantin Tuttle MD 02:57 PM Versed 1 mg Intravenous Prem Garcia RN 02:57 PM Fentanyl 50 mcg Intravenous Prem Garcia RN 03:03 PM Heparin 5000 units Intravenous Prem Garcia RN 03:04 PM Aggrastat Bolus: 50 ml Intravenous Prem Garcia RN 03:04 PM Aggrastat 12.5mg/250ml 9 ml Intravenous Prem Garcia RN 03:26 PM Brilinta 180 mg Orally Prem Garcia RN ASA Classification: CLASS II- Mild systemic disease (i.e. well-controlled diabetes, hypertension, asthma, cigarette smoking) Stephanie Score Preprocedure Postprocedure Activity 2- Moves 4 extremities sustained head lift Activity 2- Moves 4 extremities sustained head lift Circulation 2- SBP +/= 20 points of pre-anesthetic level Circulation 2- SBP +/= 20 points of pre-anesthetic level Consciousness 2- Awake and alert oriented x 3 Consciousness 2- Awake and alert oriented x 3 O2 Saturation 2- Able to maintain O2 satruation of 92% on room air O2 Saturation 2- Able to maintain O2 satruation of 92% on room air Respiratory 2- Able to deep breathe and cough well Respiratory 2- Able to deep breathe and cough well Total Score 10 Total Score 10 Contrast Agent: Isovue Diagnostic Contrast: 24 ml Total Contrast: 24 ml Fluoro Dose: 7090 mGy Procedure Log Time Note Enter By 02:41 PM 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 Bilateral groin prepped with Chloraprep by Adam Gomez RT (R), then patient was draped. Skin intact. ced:42 PM Physician arrived 14:42 cedwards 02:42 PM Yue completed cedwards 02:42 PM Sign in performed according to hospital policy. cedwards 02:42 PM Procedure start 14:42 cedwards 02:43 PM Vitals capture started with the following parameters, Patient=Adult, Interval=5 min, Initial Fvtmwhgy=833 mmHg, Deflation Rate=5 mmHg, Cuff placed on Right Arm 02:43 PM Vitals capture stopped. 02:44 PM Time: 14:44 Patient comfortable and pain free: Yes ced 02:44 PM Time: 14:44LOC: 5 = Fully awake and oriented or at pre-proc level cedwards 02:47 PM Vitals capture started with the following parameters, Patient=Adult, Interval=5 min, Initial Xvnhuaim=487 mmHg, Deflation Rate=5 mmHg, Cuff placed on Right Arm 02:47 PM Recorded ECG: HR=79 Condition=Condition 1 02:47 PM PO=411 bpm, OCOY=127/100 mmhg, SpO2=97.0 %, Comment=NSR 02:49 PM Time: 14:49 Oxygen on at 2 L/min per nasal cannula by Prem Garcia RN ced 02:50 PM Time: 14:50 Versed 1 mg Intravenous Given by Prem Garcia RN ced 02:50 PM Time: 14:50 Fentanyl 50 mcg Intravenous Given by Prem Garcia RN cedwards 02:51 PM ASA Class CLASS II- Mild systemic disease (i.e. well-controlled diabetes, hypertension, asthma, cigarette smoking) cedwards 02:51 PM Clinical Presentation: Non-STEMI cedwards 02:52 PM Time out performed according to hospital policy cedwards 02:52 PM HR=79 bpm, EMFS=984/93 mmhg, SpO2=98.0 %, Comment=NSR 02:53 PM Time: 14:52 10 ml Lidocaine 2% to right groin Subcutaneous Given by Konstantin Tuttle MD ced 02:54 PM Micro-Introducer Kit utilized for sheath placement cedwards 02:54 PM Access obtained by percutaneous puncture. 6Fr 10cm Terumo [place] sheath placed in right Femoral artery. [id number] ced 02:57 PM Time: 14:57 Versed 1 mg Intravenous Given by Prem Garcia RN ced 02:57 PM Time: 14:57 Fentanyl 50 mcg Intravenous Given by Prem Garcia RN cedwards 02:57 PM HR=76 bpm, FMGR=677/97 mmhg, SpO2=96.0 %, Comment=NSR 02:58 PM 5Fr FL 4 catheter inserted over the wire [facility] ced 02:58 PM LCA angiography performed in multiple views. ced 02:59 PM Time: 14:44 Patient comfortable and pain free: Yes cedwards 02:59 PM Time: 14:44LOC: 4 = Oriented but drowsy cedwards 03:02 PM HR=76 bpm, NSVF=897/94 mmhg, SpO2=93.0 %, Comment=NSR 03:02 PM Catheter removed cedwards 03:03 PM Lesion found in Proximal LAD. Pre Stenosis: 70 Pre CAITLYN Flow: cedwards 03:03 PM Time: 15:03 Heparin 5000 units Intravenous Given by Prem Garcia RN cedwards 03:03 PM 6Fr XB LAD 3.5 Cordis guide catheter was used to cannulate the PCI vessel successfully. reused? No cedwards 03:04 PM .014 [employer] [place] 190cm guide wire across target lesion- successful. reused? No cedwards 03:04 PM Inflation device was opened. cedwards 03:04 PM Time: 15:04 Aggrastat Bolus: 50 ml Intravenous Given by Prem Garcia RN Orta pump cedwards 03:05 PM Time: 15:04 Aggrastat 12.5mg/250ml 9 ml Intravenous Given by Prem Garcia RN Orta pump cedwards 03:05 PM Lesion found in 1st Marginal. Pre Stenosis: 99 Pre CAITLYN Flow: cedwards 03:06 PM 2.0 mm x 12 mm Emerge Monorail balloon across target lesion- successful. reused? No cedwards 03:07 PM Balloon inflated @ 12 derik for 10 seconds cedwards 03:07 PM HR=77 bpm, GEAQ=084/80 mmhg, SpO2=95 % 03:08 PM Balloon inflated @ 12 derik for 12 seconds cedwards 03:09 PM Balloon inflated @ 14 derik for 11 seconds cedwards 03:09 PM Recorded Pressure: Ao, HR=79, Condition=Condition 1 (Aorta) Ao 120/81/99 03:10 PM Balloon inflated @ 12 derik for 14 seconds cedwards 03:10 PM Balloon inflated @ 12 derik for 9 seconds cedwards 03:10 PM Balloon catheter removed intact. cedwards 03:12 PM HR=78 bpm, YLLT=611/85 mmhg, SpO2=95.0 %, Comment=NSR 03:13 PM Recorded Pressure: Ao, HR=80, Condition=Condition 1 (Aorta) Ao 133/90/110 03:14 PM Wire repositioned to LAD cedwards 03:14 PM 3.5mm x 24mm Synergy drug-eluting stent across target lesion- successful Lot [id number] cedwards 03:15 PM Stent deployed @ 11 derik for 9 seconds cedwards 03:15 PM Stent balloon reinflated @ 14 derik for 12 seconds cedwards 03:16 PM Stent delivery system removed intact. cedwards 03:16 PM Guide wire removed intact. cedwards 03:16 PM Guide catheter removed intact. cedwards 03:17 PM Procedure completed at 15:17 02/02/2018 cedwards 03:17 PM Did you address CAITLYN flow and Dominance? Yes cedwards 03:17 PM HR=80 bpm, AQCR=935/91 mmhg, SpO2=95.0 %, Comment=NSR 03:19 PM Sign out completed: Radiation Dose 720.29 mGy, 7090.37 cGy/cm2 Fluoro Time: 4.4 Isovue 370 - 200ml contrast 24 ml given by Konstantin Tuttle MD. Complications: NoneCardiac Rehab Consult needed: YesConfirmed administered medications: Yes cedwards 03:19 PM Isovue 370 - 200ml,1 Bottle(s) used. cedwards 03:20 PM Arterial sheath pulled, Angio-seal closure device used and was Successful [id number] S/N. cedwards 03:20 PM Estimated Blood Loss: minimal cedwards 03:20 PM Post ECG NSR cedwards 03:21 PM Post Blood Pressure 146/91 cedwards 03:21 PM Information taught Cardiac Cath, PCI, and Angioseal cedwards 03:21 PM Education needs Procedure, Plan of Care, and Disease Process cedwards 03:21 PM Learning barriers :None cedwards 03:21 PM Education Methods Verbal cedwards 03:21 PM Education evaluation Able to repeat information cedwards 03:21 PM Site status No bleeding/hematoma - Rt Groin as reported by Prem Garcia RN at 15:21 cedwards 03:21 PM Opsite applied cedwards 03:21 PM Plavix, Effient or Brilinta given Yes cedwards 03:22 PM HR=73 bpm, NDHW=391/103 mmhg, SpO2=97.0 % 03:24 PM Family placed in consult room. cedwards 03:24 PM Complications: None cedwards 03:24 PM Fluoro Time: 4.4 cedwards 03:24 PM Isovue 370 - 200ml contrast [address] Tuttle. cedwards 03:25 PM Radiation Dose 721.18 mGy cedwards 03:26 PM Time: 15:26 Brilinta 180 mg Orally Given by Prem Garcia RN cedwards 03:29 PM Time: 15:14LOC: 5 = Fully awake and oriented or at pre-proc level cedwards 03:29 PM Time: 15:14 Patient comfortable and pain free: Yes cedwards Complications Complication None None Hemodynamics Pressures Site Systolic/A Wave Diastolic/V Wave Mean AO 120 81 99 AO 133 90 110 Post Procedure Information Blood Pressure: 146/91 mmHg Rhythm: NSR Post procedural instructions were given Closure Device Time Device Success/Fail 02/02/2018 3:28:00 PM Angio-Seal VIP Successful Site Checks Time Location Status Staff Sheath In? Note 03:21 PM Rt Groin No bleeding/hematoma Prem Garcia RN Pulses Updated by Kodi Mills RN on 02/02/2018 3:44:22 PM electronically signed on 02/02/2018 3:46:38 PM with status of Final
[2018-02-02] MEDS: Sodium Bicarbonate 75 MEQ in 0.45 % Sodium Chloride 1,000 ML IVC SCH (17:24)
--- NOTE | 2018-02-02 17:55 | Electrocardiograph Report ---
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
--- NOTE | 2018-02-02 19:47 | Internal Med Progress Note ---
Date of Encounter: 02/02/18 Time of Encounter: 19:45 - Assessment and plan (1) NSTEMI (non-ST elevated myocardial infarction) Current Visit: Yes Status: Acute Assessment and plan: No chest pain at this time. Cardiology consulted; appreciate input. S/P [facility] today; will follow up on final report. Continue beta abner, statin, Plavix. Recheck BMP in AM to monitor post-procedure renal function. Echocardiogram revealed with preserved LV function. Will await further recommendations from cardiology. (2) CAD (coronary artery disease) Current Visit: Yes Status: Chronic Assessment and plan: Management as per above. Qualifiers: Coronary Disease-Associated Artery/Lesion type: [place] artery [place] vs. transplanted heart: [place] heart Associated angina: with unstable angina Qualified Code(s): I25.110 - Atherosclerotic heart disease of [place] coronary artery with unstable angina pectoris (3) Renal failure (ARF), acute on chronic Current Visit: Yes Status: Chronic Assessment and plan: Nephrology consulted; appreciate input. Will use IV fluids judiciously if warranted and avoid nephrotoxins. Monitor I&Os. Recheck BMP in AM. Qualifiers: Acute renal failure type: unspecified Chronic kidney disease stage: unspecified stage Qualified Code(s): N17.9 - Acute kidney failure, unspecified ; N18.9 - Chronic kidney disease, unspecified (4) HTN (hypertension) Current Visit: Yes Status: Chronic Assessment and plan: Continue home medications. Qualifiers: Hypertension type: essential hypertension Qualified Code(s): I10 - Essential (primary) hypertension (5) Emphysema of lung Current Visit: Yes Status: Chronic Assessment and plan: Stable. Continue supplemental O2 with titration and SpO2 monitoring. DuoNebs Q6HR PRN. Qualifiers: Emphysema type: unspecified Qualified Code(s): J43.9 - Emphysema, unspecified (6) Nausea and vomiting Current Visit: Yes Status: Resolved Assessment and plan: Resolved. Continue IVP Zofran 4 mg Q6HR PRN. Qualifiers: Vomiting type: cyclical vomiting Vomiting Intractability: unspecified Qualified Code(s): G43.A0 - Cyclical vomiting, not intractable (7) DVT prophylaxis Current Visit: Yes Status: Acute Assessment and plan: Continue SQ heparin and SCDs. - Time Spent With Patient Total time spent is greater than 50% in coordination of care (as documented) at patient's floor/unit and/or counseling patient: less than 15 minutes - Subjective Interval history: Patient had no acute events overnight. He states that [facility] went "well" today. He has no chest pain at this time. He states that he feels "great." He denies fever, chills, SOB, nausea, vomiting, or abdominal pain. He has no complaints at this time. - Constitutional Vitals: Temp Pulse Resp BP Pulse Ox 98.8 F 71 18 152/90 93 02/02/18 16:09 02/02/18 16:09 02/02/18 16:09 02/02/18 16:02/02/18 16:09 General appearance: Present: cooperative, A&O X 3, pleasant, no acute distress, obese, answers questions appropriately - Respiratory Respiratory exam: Present: CTAB. Absent: accessory muscle use, rales, rhonchi, wheezes Additional comments: Normal WOB - Cardiovascular Cardiovascular exam: Present: RRR, +S1, +S2. Absent: diastolic murmur, gallop, rubs, systolic murmur Additional comments: No BLE edema - GI/Abdominal GI/Abdominal exam: Present: normal bowel sounds, soft. Absent: distended, hepatomegaly, mass, splenomegaly, tenderness - Psychiatric Psychiatric exam: Present: normal affect, normal mood. Absent: agitated, anxious, depressed - Skin Skin exam: Present: dry, intact, warm. Absent: cyanosis, rash Internal Medicine: Result - Labs CBC & Chem 7: 02/02/18 06:08 02/02/18 06:08 Labs: Short CBC 02/02/18 Range/Units 06:08 WBC 6.8 (4.3-11.1) K/mcL Hgb 13.4 (12.9-16.9) g/dL Hct 40.0 (37.5-50.1) % Plt Count 219 (140-400) K/mcL Neutrophils # 5.0 (1.6-8.9) K/mcL BMP 02/02/18 06:08 Sodium 138 Potassium 4.1 Chloride 110 H Carbon Dioxide 20 L BUN 33 H Creatinine 3.03 H Glucose 117 H Calcium 8.9 Liver Function 02/02/18 Range/Units 06:08 Total Bilirubin 0.4 (0.3-1.0) mg/dL AST 18 (13-39) Units/L ALT 16 (7-52) Units/L Alkaline Phosphatase 43 (34-104) Units/L Albumin 3.6 (3.5-5.7) g/dL - ABG Interpretation ABG results: PT/INR, D-dimer PT 11.2 Seconds (9.4-12.1) 01/29/18 19:13 Consult Discharge Plan - Plan Referrals: Razia Huynh CNP [Primary Care Provider] - 02/07/18 10:30 am Malcom Barajas CNP [Advanced Practice Nurse] - 02/24/18 10:00 am
[2018-02-02] MEDS: Loratadine 10 MG TABLET PO SCH (20:30)
[2018-02-02] MEDS: *HR* Ticagrelor 90 MG TABLET PO SCH (20:30)
[2018-02-02] MEDS: Fluticasone Propionate Nasal 50 MCG/SPRAY BOTTLE NS SCH (20:31)
[2018-02-03 04:05] LABS: Basophils % 0.5 %; Eosinophils # 0.4 K/mcL (0.0-0.6); Eosinophils % 6.2 %; Hemoglobin 12.6 g/dL (12.9-16.9); Immature Granulocytes % 0.5 % (0-4); Mean Corpuscular HGB Conc 34.1 g/dL (31.6-35.5); Mean Corpuscular Hemoglobin 29.1 pg (28.0-33.3); Mean Corpuscular Volume 85.5 fL (83.0-100.0); Mean Platelet Volume 10.2 fL (9.4-12.4); Monocytes # 0.6 K/mcL (0.0-1.3); Monocytes % 9.7 %; Neutrophils # 4.3 K/mcL (1.6-8.9); Platelet Count 203 K/mcL (140-400); Red Blood Count 4.33 M/mcL (4.19-5.50); Segmented Neutrophils % 67.1 %
[2018-02-03 04:30] LABS: Albumin 3.4 g/dL (3.5-5.7); Albumin/Globulin Ratio 1.3 (1.1-2.2); Bilirubin,Total 0.6 mg/dL (0.3-1.0); Calcium 8.7 mg/dL (8.6-10.3); Globulin 2.6 g/dL (2.4-3.5)
[2018-02-03] MEDS: *HR* Heparin 5,000 UNIT/ML VIAL SQ SCH ×2 (06:18→16:47)
[2018-02-03] MEDS: Sodium Bicarbonate 75 MEQ in 0.45 % Sodium Chloride 1,000 ML IVC SCH (07:07)
[2018-02-03] MEDS: amLODIPine 5 MG TABLET PO SCH (07:46)
[2018-02-03] MEDS: Loratadine 10 MG TABLET PO SCH (07:46)
[2018-02-03] MEDS: *HR* Ticagrelor 90 MG TABLET PO SCH ×2 (07:46→20:12)
[2018-02-03] MEDS: Aspirin 81 MG TAB.CHEW PO SCH (07:46)
[2018-02-03] MEDS: *HR* Acetylcysteine 20% 600 MG/3 ML ORAL SYRINGE PO SCH ×2 (07:46→20:12)
[2018-02-03] MEDS: Isosorbide MONOnitrate (24 HR) 60 MG TAB.ER.24H PO SCH (07:46)
[2018-02-03] MEDS: Fluticasone Propionate Nasal 50 MCG/SPRAY BOTTLE NS SCH (07:47)
--- NOTE | 2018-02-03 09:38 | Cardiology Progress Note ---
Date of Encounter: 02/03/18 Time of Encounter: 09:36 Assessment and Plan (1) NSTEMI (non-ST elevated myocardial infarction) Current Visit: Yes Status: Acute Presented with typical chest pain symptoms, ischemic ECG changes. Troponin peaked at 8.52. Known hx of CAD s/p PCI with preserved LVEF in 2014. TTE 01/30/18: LVEF 60%, moderate cLVH, moderate LVDD, no significant valvular dysfunction, normal wall motion. [facility] completed [facility]23[facility]- Discussed with Dr. Tuttle s/p PCI with BIENVENIDO to the LAD and PTCA to ISR in the ramus. Final report pending. There was no complication from the procedure. Denies recurrent chest pain. No complications from right femoral access site. Scr remains stable. Recommend BMP in one week. Importance of DAPT with asa and brilinta uninterrupted for minimum of one year discussed and she voiced understanding. Brilinta co-pay card given. Please fill brilinta here prior to d/c. Continue statin and BB. NTG PRN chest pain. Activity restrictions reviewed as stated above.Cardiac rehab ordered. Cardiology will sign off. Out-pt f/u will be coordinated by [facility]. (2) CAD (coronary artery disease) Current Visit: Yes Status: Chronic plan as above. Hx of CAD s/p PCI in 2014. S/p PCI to the LAD and ramus yesterday. No complications. Asa, statin, BB, nitrates and brilinta. Qualifiers: Coronary Disease-Associated Artery/Lesion type: [place] artery [place] vs. transplanted heart: [place] heart Associated angina: with unstable angina Qualified Code(s): I25.110 - Atherosclerotic heart disease of [place] coronary artery with unstable angina pectoris (3) Renal insufficiency Current Visit: Yes Status: Acute CKD stage IV. Reported history of polycystic kidney disease. SCr stable today. Check BMP in one week. Nephrology following. Discussion w patient/family: The assessment and plan as outlined above was discussed with the patient and/or family members who expressed understanding and agreement. All questions were answered. Thank you for involving us in the care of your patient. Please call with any questions. Subjective Principal diagnosis: chest pain Interval history: Mr. Greenfield states that he did well overnight. Denies problems with right groin access. Denies recurrent chest pain. Objective Vital Signs, Last 4 Hours Temp Pulse Resp BP Pulse Ox 02/03/18 07:55 80 02/03/18 07:13 98.1 F 75 18 149/95 94 General: Conversant, No Apparent Distress HEENT: Atraumatic, Normocephaly, Mucus Membranes Moist Neck: No JVD, Normal carotid pulses Cardiac: Reg Rate and Rhythm, Normal S1 and S2, No Murmur Lungs: Normal Breath Sounds, No Wheeze, Rales, Rhonchi Neuro: Alert and responsive, No focal deficits noted Abdomen: Soft, Non-Tender Skin: No rashes noted on visualized skin Musculoskeletal: No Chest Wall Tenderness Extremities: No Clubbing, No Cyanosis, No Edema, Normal Pulses, Other (Right groin soft without hematoma. Small knot noted. ) Results 02/03/18 03:53 02/03/18 03:53 Lab Results 02/03/18 02/03/18 03:53 03:53 WBC 6.4 Hgb 12.6 L Hct 37.0 L Plt Count 203 Sodium 138 Potassium 4.0 Chloride 109 H Carbon Dioxide 21 L BUN 30 H Creatinine 2.86 H Glucose 88 Calcium 8.7 Total Bilirubin 0.6 AST 21 ALT 19 Alkaline Phosphatase 40 - Imaging and Cardiology Echo: report reviewed Cardiac cath: report reviewed - EKG Interpretation EKG results cardiology: personally reviewed - VTE Documentation of Mechanical Device: Intermittent pneumatic compression device Consult Discharge Plan - Plan Referrals: Razia Huynh CNP [Primary Care Provider] - 02/07/18 10:30 am Malcom Barajas CNP [Advanced Practice Nurse] - 02/24/18 10:00 am
[2018-02-03 09:50] LABS: Phosphorous 3.9 mg/dL (2.7-4.5)
--- NOTE | 2018-02-03 10:05 | Nephrology Progress Note ---
Date of Encounter: 02/03/18 Time of Encounter: 10:05 - Assessment and Plan (1) Acute kidney injury superimposed on chronic kidney disease Current Visit: Yes Status: Acute Will continue to watch renal function, this could be his new baseline GFR. Continue to renal dose and avoid nephrotoxins. GFR 22 today, improved. Urine output 1425 yesterday and 1625 today. Encouraged adequate PO intake. When able to be discharged BMP In 1 week and F/U with [facility]. (2) NSTEMI (non-ST elevated myocardial infarction) Current Visit: Yes Status: Acute Per Cardiology. (3) Nausea and vomiting Current Visit: Yes Status: Resolved Resolved, per primary team. Qualifiers: Vomiting type: cyclical vomiting Vomiting Intractability: unspecified Qualified Code(s): G43.A0 - Cyclical vomiting, not intractable Subjective Principal diagnosis: chest pain Interval history: Pt seen and examined, doing well. NAD. Denies chest pain. Objective - Vital Signs Vital signs: Vital Signs Temp Pulse Resp BP Pulse Ox 02/03/18 07:55 80 02/03/18 07:13 98.1 F 75 18 149/95 94 02/03/18 04:11 97.9 F 71 17 146/90 96 02/03/18 00:43 98.2 F 78 16 144/81 93 02/02/18 20:26 98.4 F 74 16 149/86 95 02/02/18 20:25 73 02/02/18 16:09 98.8 F 71 18 152/90 93 02/02/18 11:38 98.8 F 73 18 146/95 93 Intake and Output 02/02/18 02/03/18 02/03/18 23:59 07:59 15:59 Intake Total 297 / 297 1800 / 1800 360 / 360 Output Total 600 / 600 1625 / 1625 Balance -303 / -303 175 / 175 360 / 360 Intake: IV Fluids 57 / 57 1000 / 1000 Sodium Bicarbonate 75 MEQ In 0. 1000 / 1000 45% Sodium Chloride 1000 Ml 1000 Ml 1,000 ML @ 75 mls/hr IVC .[id number] KLARISSA Rx#:[id number] Aggrastat 12.5 MG/250 ML 12.5 57 / 57 mg In 250 ml @ 0.075 MCG/KG/MIN 9.009 mls/hr IVC .Q24H KLARISSA Rx# :[id number] Oral 240 / 240 800 / 800 360 / 360 Output: Urine 600 / 600 1625 / 1625 Other: Meal Dinner Breakfast Percent of Meal Consumed 75% 100% Stool Size Moderate Stool Consistency loose soft # Voids 1 1 # Bowel Movements 1 Weight 103.2 kg Patient Weight 02/03/18 23:59 Weight 103.2 kg - General Appearance General appearance: Present: well-developed, well-nourished EENT: Present: ATNC, hearing intact, vision intact Neck: Present: supple Respiratory: Present: clear Cardiology: Present: no edema, normal S1, normal S2 Gastrointestinal: Present: normoactive bowel sounds, no tenderness, no guarding Integumentary: Present: no rash, warm and dry Neurologic: Present: alert and oriented x3 Psychiatric: Present: mood/affect appropriate, cooperative - Lab 02/03/18 03:53 02/03/18 03:53 Most recent lab results Calcium 8.7 mg/dL (8.6-10.3) 02/03/18 03:53 Phosphorus 3.9 mg/dL (2.7-4.5) 02/03/18 03:53 Magnesium 2.2 mg/dL (1.6-2.6) 01/30/18 01:40 Urine Creatinine 53 mg/dL 01/30/18 12:50 Urine Sodium 85.5 mEq/L 01/30/18 12:50 Urine Total Protein 81 mg/dL (1-14) H 01/30/18 12:50 - VTE Documentation of Mechanical Device: Intermittent pneumatic compression device Consult Discharge Plan - Plan Referrals: Razia Huynh CNP [Primary Care Provider] - 02/07/18 10:30 am Malcom Barajas CNP [Advanced Practice Nurse] - 02/24/18 10:00 am Prescriptions: Nitroglycerin 0.4 mg SL Q5MIN PRN #25 tab.subl PRN Reason: Chest Pain Ticagrelor [Brilinta] 90 mg PO BID #60 tablet
--- NOTE | 2018-02-03 16:42 | Electrocardiograph Report ---
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
--- NOTE | 2018-02-03 17:44 | Internal Med Progress Note ---
Date of Encounter: 02/03/18 Time of Encounter: 16:57 - Assessment and plan (1) NSTEMI (non-ST elevated myocardial infarction) Current Visit: Yes Status: Acute Assessment and plan: No chest pain at this time. Cardiology consulted; appreciate input. S/P LHC yesterday; BIENVENIDO to the LAD and PTCA to ISR in the ramus. Continue beta abner, statin, Plavix. Recheck BMP in AM to monitor post-procedure renal function. Echocardiogram revealed with preserved LV function. Cardiology cleared patient for discharge. Nephrology wants to monitor renal function in AM prior to discharge. Will plan for discharge tomorrow with close follow up with PCP, cardiology, and nephrology. (2) CAD (coronary artery disease) Current Visit: Yes Status: Chronic Assessment and plan: Management as per above. Qualifiers: Coronary Disease-Associated Artery/Lesion type: [place] artery [place] vs. transplanted heart: [place] heart Associated angina: with unstable angina Qualified Code(s): I25.110 - Atherosclerotic heart disease of [place] coronary artery with unstable angina pectoris (3) Renal failure (ARF), acute on chronic Current Visit: Yes Status: Chronic Assessment and plan: Nephrology consulted; appreciate input. Will use IV fluids judiciously if warranted and avoid nephrotoxins. Monitor I&Os. Recheck BMP in AM. Plan for discharge home in AM if renal function stable. Qualifiers: Acute renal failure type: unspecified Chronic kidney disease stage: unspecified stage Qualified Code(s): N17.9 - Acute kidney failure, unspecified ; N18.9 - Chronic kidney disease, unspecified (4) HTN (hypertension) Current Visit: Yes Status: Chronic Assessment and plan: Continue home medications. Qualifiers: Hypertension type: essential hypertension Qualified Code(s): I10 - Essential (primary) hypertension (5) Emphysema of lung Current Visit: Yes Status: Chronic Assessment and plan: Stable. Continue supplemental O2 with titration and SpO2 monitoring. DuoNebs Q6HR PRN. Qualifiers: Emphysema type: unspecified Qualified Code(s): J43.9 - Emphysema, unspecified (6) Nausea and vomiting Current Visit: Yes Status: Resolved Assessment and plan: Resolved. Continue IVP Zofran 4 mg Q6HR PRN. Qualifiers: Vomiting type: cyclical vomiting Vomiting Intractability: unspecified Qualified Code(s): G43.A0 - Cyclical vomiting, not intractable (7) DVT prophylaxis Current Visit: Yes Status: Acute Assessment and plan: Continue SQ heparin and SCDs. - Time Spent With Patient Total time spent is greater than 50% in coordination of care (as documented) at patient's floor/unit and/or counseling patient: less than 15 minutes - Subjective Interval history: Patient had no acute events overnight. He states that he feels "great." He has no chest pain at this time. He denies fever, chills, SOB, nausea, vomiting , or abdominal pain. He has no complaints at this time. - Constitutional Vitals: Temp Pulse Resp BP Pulse Ox 98.1 F 81 18 141/82 93 02/03/18 16:03 02/03/18 16:03 02/03/18 16:03 02/03/18 16:03 02/03/18 16:03 General appearance: Present: cooperative, A&O X 3, pleasant, no acute distress, obese, answers questions appropriately - Respiratory Respiratory exam: Present: CTAB. Absent: accessory muscle use, rales, rhonchi, wheezes Additional comments: Normal WOB - Cardiovascular Cardiovascular exam: Present: RRR, +S1, +S2. Absent: diastolic murmur, gallop, rubs, systolic murmur Additional comments: No BLE edema - GI/Abdominal GI/Abdominal exam: Present: normal bowel sounds, soft. Absent: distended, hepatomegaly, mass, splenomegaly, tenderness - Psychiatric Psychiatric exam: Present: normal affect, normal mood. Absent: agitated, anxious, depressed - Skin Skin exam: Present: dry, intact, warm. Absent: cyanosis, rash Internal Medicine: Result - Labs CBC & Chem 7: 02/03/18 03:53 02/03/18 03:53 Labs: Short CBC 02/03/18 Range/Units 03:53 WBC 6.4 (4.3-11.1) K/mcL Hgb 12.6 L (12.9-16.9) g/dL Hct 37.0 L (37.5-50.1) % Plt Count 203 (140-400) K/mcL Neutrophils # 4.3 (1.6-8.9) K/mcL BMP 02/03/18 03:53 Sodium 138 Potassium 4.0 Chloride 109 H Carbon Dioxide 21 L BUN 30 H Creatinine 2.86 H Glucose 88 Calcium 8.7 Liver Function 02/03/18 Range/Units 03:53 Total Bilirubin 0.6 (0.3-1.0) mg/dL AST 21 (13-39) Units/L ALT 19 (7-52) Units/L Alkaline Phosphatase 40 (34-104) Units/L Albumin 3.4 L (3.5-5.7) g/dL - ABG Interpretation ABG results: PT/INR, D-dimer PT 11.2 Seconds (9.4-12.1) 01/29/18 19:13 Consult Discharge Plan - Plan Referrals: Razia Huynh CNP [Primary Care Provider] - 02/07/18 10:30 am Malcom Barajas CNP [Advanced Practice Nurse] - 02/24/18 10:00 am Prescriptions: Nitroglycerin 0.4 mg SL Q5MIN PRN #25 tab.subl PRN Reason: Chest Pain Ticagrelor [Brilinta] 90 mg PO BID #60 tablet
[2018-02-04 03:50] LABS: Basophils % 0.6 %; Eosinophils # 0.4 K/mcL (0.0-0.6); Eosinophils % 5.5 %; Hematocrit 35.4 % (37.5-50.1); Hemoglobin 11.8 g/dL (12.9-16.9); Immature Granulocytes % 0.3 % (0-4); Lymphocytes # 1.2 K/mcL (0.6-4.6); Lymphocytes % 17.2 %; Mean Corpuscular HGB Conc 33.3 g/dL (31.6-35.5); Mean Corpuscular Hemoglobin 28.7 pg (28.0-33.3); Mean Corpuscular Volume 86.1 fL (83.0-100.0); Mean Platelet Volume 10.4 fL (9.4-12.4); Monocytes # 0.7 K/mcL (0.0-1.3); Monocytes % 10.2 %; Neutrophils # 4.4 K/mcL (1.6-8.9); Platelet Count 192 K/mcL (140-400); Red Blood Count 4.11 M/mcL (4.19-5.50); Red Cell Distribution Width 14.1 % (11.5-14.5); Segmented Neutrophils % 66.2 %
[2018-02-04 03:52] LABS: Calcium 8.7 mg/dL (8.6-10.3); Potassium 4.3 mEq/L (3.5-5.1)
[2018-02-04] MEDS: *HR* Heparin 5,000 UNIT/ML VIAL SQ SCH (06:09)
[2018-02-04] MEDS: Isosorbide MONOnitrate (24 HR) 60 MG TAB.ER.24H PO SCH (08:05)
[2018-02-04] MEDS: Aspirin 81 MG TAB.CHEW PO SCH (08:05)
[2018-02-04] MEDS: *HR* Ticagrelor 90 MG TABLET PO SCH (08:05)
[2018-02-04] MEDS: amLODIPine 5 MG TABLET PO SCH (08:05)
[2018-02-04] MEDS: Loratadine 10 MG TABLET PO SCH (08:05)
[2018-02-04] MEDS: Fluticasone Propionate Nasal 50 MCG/SPRAY BOTTLE NS SCH (08:06)
--- NOTE | 2018-02-04 10:51 | Nephrology Progress Note ---
Date of Encounter: 02/04/18 Time of Encounter: 10:48 - Assessment and Plan (1) Acute kidney injury superimposed on chronic kidney disease Current Visit: Yes Status: Acute This could be new baseline. Continue to renal dose and avoid nephrotoxins. GFR 21 today. Urine output 3050, patient is voiding in commode, unable to see I/O. Encouraged adequate PO intake. May D/C from renal standpoint, if he is sure to get lab done in 1 week and f/u in the office with Dr. Whitten in 4-6 weeks. (2) NSTEMI (non-ST elevated myocardial infarction) Current Visit: Yes Status: Acute Per Cardiology. (3) Nausea and vomiting Current Visit: Yes Status: Resolved Resolved, per primary team. Qualifiers: Vomiting type: cyclical vomiting Vomiting Intractability: unspecified Qualified Code(s): G43.A0 - Cyclical vomiting, not intractable Subjective Principal diagnosis: chest pain Interval history: Pt seen and examined, doing well. NAD. Denies chest pain. Objective - Vital Signs Vital signs: Vital Signs Temp Pulse Resp BP Pulse Ox 02/04/18 07:04 98.6 F 73 18 130/78 95 02/04/18 04:14 98.5 F 73 18 152/87 94 02/04/18 04:00 71 02/04/18 00:10 72 02/03/18 23:25 98.2 F 69 18 128/74 93 02/03/18 20:05 82 02/03/18 18:57 97.9 F 82 18 140/84 94 02/03/18 16:03 98.1 F 81 18 141/82 93 02/03/18 15:07 79 02/03/18 11:40 72 02/03/18 11:11 98.4 F 76 18 119/69 92 Intake and Output 02/03/18 02/04/18 02/04/18 23:59 07:59 15:59 Intake Total 1895 / 1895 200 / 200 480 / 480 Output Total 1075 / 1075 Balance 820 / 820 200 / 200 480 / 480 Intake: IV Fluids 1075 / 1075 Sodium Bicarbonate 75 MEQ In 0. 1075 / 1075 45% Sodium Chloride 1000 Ml 1000 Ml 1,000 ML @ 75 mls/hr IVC .[id number] [facility] Rx#:[id number] Oral 820 / 820 200 / 200 480 / 480 Output: Urine 1075 / 1075 Other: Meal Dinner Breakfast Percent of Meal Consumed 90% 50% # Urine Diapers 1 Weight 103.2 kg Patient Weight 02/04/18 23:59 Weight 103.2 kg - General Appearance General appearance: Present: well-developed, well-nourished, appears started age EENT: Present: ATNC, hearing intact, vision intact Neck: Present: supple Respiratory: Present: clear Cardiology: Present: no edema, normal S1, normal S2 Gastrointestinal: Present: normoactive bowel sounds, no tenderness, no guarding Integumentary: Present: no rash, warm and dry Neurologic: Present: alert and oriented x3 Psychiatric: Present: mood/affect appropriate, cooperative - Lab 02/04/18 03:13 02/04/18 03:13 Most recent lab results Calcium 8.7 mg/dL (8.6-10.3) 02/04/18 03:13 Phosphorus 3.9 mg/dL (2.7-4.5) 02/03/18 03:53 Magnesium 2.2 mg/dL (1.6-2.6) 01/30/18 01:40 Urine Creatinine 53 mg/dL 01/30/18 12:50 Urine Sodium 85.5 mEq/L 01/30/18 12:50 Urine Total Protein 81 mg/dL (1-14) H 01/30/18 12:50 - VTE Documentation of Mechanical Device: Intermittent pneumatic compression device Consult Discharge Plan - Plan Referrals: Kavya Cam CNP [Advanced Practice Nurse] - 02/11/18 9:00 am Malcom Barajas CNP [Advanced Practice Nurse] - 02/24/18 10:00 am Prescriptions: Nitroglycerin 0.4 mg SL Q5MIN PRN #25 tab.subl PRN Reason: Chest Pain Ticagrelor [Brilinta] 90 mg PO BID #60 tablet
[2018-02-04] MEDS: Nicotine 2 MG GUM BC PRN ×2 (11:55→13:58)
[2018-02-04 15:13] VITALS: BP 156/98
--- NOTE | 2018-02-04 16:04 | Discharge Summary ---
- NOTES TO OUTPATIENT PROVIDER Notes to Outpatient Provider: Follow up with PCP in 2-3 days after discharge. Recheck BMP (CKD) at that time and forward results to nephrology. Follow up with nephrology in 2-4 weeks as directed. Follow up with cardiology as directed. Orders not resulted at time of discharge: Pending orders 02/02/18 15:21 ECG 12 lead ECG [ECG] Routine 02/03/18 07:00 ECG 12 lead ECG [ECG] Routine Date of Encounter: 02/04/18 Time of Encounter: 16:02 - Discharge Diagnosis (1) NSTEMI (non-ST elevated myocardial infarction) Priority: Primary Status: Acute (2) CAD (coronary artery disease) Priority: Secondary Status: Chronic Qualifiers: Coronary Disease-Associated Artery/Lesion type: [place] artery [place] vs. transplanted heart: [place] heart Associated angina: with unstable angina Qualified Code(s): I25.110 - Atherosclerotic heart disease of [place] coronary artery with unstable angina pectoris (3) Renal failure (ARF), acute on chronic Priority: Secondary Status: Chronic Qualifiers: Acute renal failure type: unspecified Chronic kidney disease stage: unspecified stage Qualified Code(s): N17.9 - Acute kidney failure, unspecified ; N18.9 - Chronic kidney disease, unspecified (4) HTN (hypertension) Priority: Secondary Status: Chronic Qualifiers: Hypertension type: essential hypertension Qualified Code(s): I10 - Essential (primary) hypertension (5) Emphysema of lung Priority: Secondary Status: Chronic Qualifiers: Emphysema type: unspecified Qualified Code(s): J43.9 - Emphysema, unspecified (6) Nausea and vomiting Priority: Secondary Status: Resolved Qualifiers: Vomiting type: cyclical vomiting Vomiting Intractability: unspecified Qualified Code(s): G43.A0 - Cyclical vomiting, not intractable (7) DVT prophylaxis Priority: Secondary Status: Acute Hospital course: Mr. Greenfield is a 67 year old male admitted for chest pain secondary to NSTEMI. He was admitted to general medical floor with telemetry. Troponin trended up to 7.35. Cardiology was consulted. Home medications were continued. He was started on aspirin, nitro, and statin. TTE 01/30/18: LVEF 60%, moderate cLVH, moderate LVDD, no significant valvular dysfunction, normal wall motion. Nephrology was consulted due to SUZIE on CKD. He was given mucomyst and bicarb by nephrology in preparation for LHC. LHC was performed on 02/02/18, and he is s /p PCI with BIENVENIDO to the LAD and PTCA to ISR in the ramus. He was started on brillinta. Nephrology observed 1 extra day to monitor renal function. He will follow up with PCP in 2-3 days after discharge. BMP will be rechecked at this time. He will follow up with nephrology in 2-4 weeks after discharge. He will follow up with cardiology as directed. Patient has met maximum benefit of this hospitalization and will be discharged home in stable condition. Discharge discussed with: patient, nurse, senior staff consultant (Nephrology Dr. Duran), other (Pharmacist) - Time Spent with Patient Total time spent providing and/or coordinating discharge services: Greater than 30 minutes - Discharge Medications Prescriptions: Nitroglycerin 0.4 mg SL Q5MIN PRN #25 tab.subl PRN Reason: Chest Pain amLODIPine [Norvasc] 10 mg PO DAILY 7 Days #7 tablet Aspirin 81 mg PO DAILY 7 Days #7 tab.chew Atorvastatin [Lipitor] 40 mg PO HS 7 Days #7 tablet Isosorbide MONOnitrate (24 HR) [Imdur] 60 mg PO DAILY 7 Days #7 tab.er.24h Ticagrelor [Brilinta] 90 mg PO BID #60 tablet Home Medications: Carvedilol [Coreg] 6.25 mg PO BIDWM 01/29/18 [History] Cetirizine HCl [Zyrtec] 10 mg PO DAILY 01/29/18 [History] Fluticasone Propionate Nasal [Flonase] 50 mcg NS DAILY 01/29/18 [History] Nitroglycerin 0.4 mg SL Q5MIN PRN #25 tab.subl 02/03/18 [Rx] Ticagrelor [Brilinta] 90 mg PO BID #60 tablet 02/03/18 [Rx] Aspirin 81 mg PO DAILY 7 Days #7 tab.chew 02/04/18 [Rx] Atorvastatin [Lipitor] 40 mg PO HS 7 Days #7 tablet 02/04/18 [Rx] Isosorbide MONOnitrate (24 HR) [Imdur] 60 mg PO DAILY 7 Days #7 tab.er.24h 02/04 [Rx] Nicotine Gum [Nicorette gum] 2 mg BC Q2HWA PRN gum 02/04/18 [Rx] amLODIPine [Norvasc] 10 mg PO DAILY 7 Days #7 tablet 02/04/18 [Rx] Allergies/Adverse Reactions: 3 Allergy/AdvReac Type Severity Reaction Status Date / Time No Known Allergies Allergy Verified 01/30/18 10:56 Date of admission: 01/29/18 18:44 Primary care physician: Razia Huynh Consults: 01/29/18 18:38 Consult to Cardiology [CONS] Routine Comment: Consulting Provider: Cardiology Lela Reason for Consult: Patient had CP today following eating at [employer]. N/V/ Diaphoresis. Centralized pain w/radiation to left arm and teeth. EKG @ [facility] showed evidence of subendocardial ischemia but no evidence of acute ST elevation or acute MN. Initial troponin <0.03. Call Completed: Yes 01/29/18 18:50 Consult to [facility] [CONS] Routine Reason for SW Consult: Please assess patient for possible home needs for post -discharge planning. 01/30/18 09:20 Consult to Nephrology [CONS] Routine Consulting Provider: Kidney Lela/ODALIS/ALYSSA/GREG Reason for Consult: SUZIE on CKD Time Notified: 09:15 Call Completed: Yes 01/30/18 10:00 Consult to Cardiac Rehabilitation-Phase1 [CONS] Routine Comment: Reason for Consult: NSTEMI Call Completed: No 02/02/18 15:21 Consult to Cardiac Rehabilitation-Phase1 [CONS] Routine Comment: Reason for Consult: AMI Call Completed: Yes Consult to Nurse Navigator [CONS] Routine Comment: Discharging clinician: Hung Lawrence Anticipated date of discharge: 02/04/18 - Constitutional Vitals: Temp Pulse Resp BP Pulse Ox 98.4 F 77 18 156/98 96 02/04/18 15:11 02/04/18 15:11 02/04/18 15:11 02/04/18 15:11 02/04/18 15:11 General appearance: Present: cooperative, A&O X 3, pleasant, no acute distress, obese, answers questions appropriately - Respiratory Respiratory exam: Present: CTAB. Absent: accessory muscle use, rales, rhonchi, wheezes Additional comments: Normal WOB - Cardiovascular Cardiovascular exam: Present: RRR, +S1, +S2. Absent: diastolic murmur, gallop, rubs, systolic murmur Additional comments: No BLE edema - GI/Abdominal GI/Abdominal exam: Present: normal bowel sounds, soft. Absent: distended, hepatomegaly, mass, splenomegaly, tenderness - Psychiatric Psychiatric exam: Present: normal affect, normal mood. Absent: agitated, anxious, depressed - Skin Skin exam: Present: dry, intact, warm. Absent: cyanosis, rash - Patient Status Disposition: Home, Self-Care Condition: Good Overall status at discharge: patient is progressing back to baseline - Discharge Instructions Follow Up With: Kavya Cam CNP [Advanced Practice Nurse] - 02/11/18 9:00 am Malcom Barajas CNP [Advanced Practice Nurse] - 02/24/18 10:00 am Additional Instructions: Follow up with PCP in 2-3 days after discharge. Recheck BMP (CKD) at that time and forward results to nephrology. Follow up with nephrology in 2-4 weeks as directed. Follow up with cardiology as directed. - Diet and Activity Activity: resume usual activities as tolerated Diet: low fat, low cholesterol, low salt diet, other (Cardiac Diet, Renal Diet)
== END 2018-02-04 16:34 | disposition home or self-care (01) | DRG 247 ==
LOC: 2NNU
PROVIDERS: ADMIT Hospitalist; ATTEND Hospitalist